=== PATIENT | female | born 1960 | race African-American/Black ===

== ENCOUNTER 2019-07-23 12:12 | Inpatient (IN) | payer BC, SELFPAY ==
[2019-07-23] VITALS (37 sets, daily range): BP systolic 117–156; BP diastolic 57–95; PULSE 96–129; RESP 14–29; TEMP 37.4–37.9; O2SAT 88–100; BMI 44.1
--- NOTE | ~2019-07-23 | XR_ITS ---
EXAMINATION: XR abdomen NG/feed tube insert DATE: 07/28/2019 22:45 INDICATION: Endotracheal tube insertion. Orogastric tube insertion. TECHNIQUE: 1. Frontal view of the chest was obtained. 2. AP view of the abdomen was obtained. COMPARISON: Chest radiograph dated 07/28/2019 FINDINGS: Chest: Endotracheal tube tip 2.4 cm above the braulio. Interval increase in bilateral patchy airspace opaciti es relatively sparing the left upper lung zone. No pleural effusion or pneumothorax. The cardiomedias tinal silhouette is normal. KUB: Orogastric tube tip in proximal side port in the body of the stomach. No dilated loops of gas-filled bowel to suggest obstruction. IMPRESSION: 1. Endotracheal tube and orogastric tube in expected positions. 2. Worsening diffuse bilateral lung disease consistent with pneumonia, pulmonary edema, ARDS or some combination thereof. Reviewed, dictated and finalized at location A. IMPRESSION: 1. Endotracheal tube and orogastric tube in expected positions. 2. Worsening diffuse bilateral lung disease consistent with pneumonia, pulmonar y edema, ARDS or some combination thereof.
--- NOTE | ~2019-07-23 | XR_ITS ---
EXAMINATION: XR chest 1V portable DATE: 07/27/2019 05:55 INDICATION: COVID-19 pneumonia. TECHNIQUE: A single frontal view of the chest was obtained. COMPARISON: Chest single view 07/26/2019 FINDINGS: There are patchy airspace opacities in all lung zones bilaterally. No pleural effusion or p neumothorax. The heart size is normal. IMPRESSION: 1. Stable diffuse lung disease, consistent with pneumonia versus acute respiratory distress syndrome (ARDS). Reviewed, dictated and finalized at location A. IMPRESSION: 1. Stable diffuse lung disease, consistent with pneumonia versus acute respirat ory distress syndrome (ARDS).
--- NOTE | ~2019-07-23 | XR_ITS ---
EXAMINATION: XR chest 1V portable INDICATION: COVID-19 pneumonia TECHNIQUE: Portable AP chest at 0517 hours COMPARISON: 07/27/2019 FINDINGS: Diffuse patchy bilateral airspace opacities persist without significant change. There is no pleural effusion or pneumothorax. The cardiomediastinal silhouette is normal. IMPRESSION: 1. Diffuse lung disease without significant change, consistent with pneumonia and/or acute respirator y distress syndrome (ARDS). Reviewed, dictated and finalized at location A. IMPRESSION: 1. Diffuse lung disease without significant change, consistent with pneumonia a nd/or acute respiratory distress syndrome (ARDS).
--- NOTE | ~2019-07-23 | XR_ITS ---
EXAMINATION: XR chest 1V portable DATE: 07/26/2019 05:58 INDICATION: COVID-19 pneumonia. TECHNIQUE: A single frontal view of the chest was obtained. COMPARISON: Chest single view 07/25/2019 FINDINGS: There are patchy airspace opacities in all lung zones bilaterally with a peripheral predomi nance. No pleural effusion or pneumothorax. The heart size is normal. IMPRESSION: 1. Unchanged diffuse lung disease, consistent with pneumonia versus acute respiratory distress syndro me (ARDS). Reviewed, dictated and finalized at location A. IMPRESSION: 1. Unchanged diffuse lung disease, consistent with pneumonia versus acute respi ratory distress syndrome (ARDS).
--- NOTE | ~2019-07-23 | XR_ITS ---
EXAMINATION: XR chest 1V portable DATE: 07/29/2019 06:02 INDICATION: Bilateral pulmonary infiltrates. COVID 19. TECHNIQUE: frontal view of the chest was obtained. COMPARISON: Chest radiograph dated 07/28/2019 FINDINGS: Endotracheal tube tip 1.8 cm above the braulio. Nasogastric tube extends below the left hemidiaphragm with distal tip collimated off the study. Slight improvement in the diffuse bilateral patchy airspace opacities. No pleural effusion or pneumot horax. The cardiomediastinal silhouette is normal. IMPRESSION: 1. Slight improvement in diffuse bilateral patchy opacities consistent with pneumonia, pulmonary zen a, ARDS or some combination thereof. Reviewed, dictated and finalized at location A. IMPRESSION: 1. Slight improvement in diffuse bilateral patchy opacities consistent with pne umonia, pulmonary edema, ARDS or some combination thereof.
--- NOTE | ~2019-07-23 | XR_ITS ---
EXAMINATION: XR chest 1V portable INDICATION: Hypoxia and shortness of breath TECHNIQUE: Portable AP chest at 1340 hours COMPARISON: None available FINDINGS: There are peripheral predominant opacities of the mid and lower lung zones. The heart size is upper limits of normal for technique. No pleural effusion or pneumothorax is identified. There is a moderate-sized hiatal hernia. IMPRESSION: 1. Airspace opacities of the mid and lower lung zones, consistent with pneumonia versus atelectasis. Reviewed, dictated and finalized at location A. IMPRESSION: 1. Airspace opacities of the mid and lower lung zones, consistent with pneumoni a versus atelectasis.
--- NOTE | ~2019-07-23 | XR_ITS ---
EXAMINATION: XR chest ET placement DATE: 07/28/2019 22:46 INDICATION: Endotracheal tube insertion. Orogastric tube insertion. TECHNIQUE: 1. Frontal view of the chest was obtained. 2. AP view of the abdomen was obtained. COMPARISON: Chest radiograph dated 07/28/2019 FINDINGS: Chest: Endotracheal tube tip 2.4 cm above the braulio. Interval increase in bilateral patchy airspace opaciti es relatively sparing the left upper lung zone. No pleural effusion or pneumothorax. The cardiomedias tinal silhouette is normal. KUB: Orogastric tube tip in proximal side port in the body of the stomach. No dilated loops of gas-filled bowel to suggest obstruction. IMPRESSION: 1. Endotracheal tube and orogastric tube in expected positions. 2. Worsening diffuse bilateral lung disease consistent with pneumonia, pulmonary edema, ARDS or some combination thereof. Reviewed, dictated and finalized at location A. IMPRESSION: 1. Endotracheal tube and orogastric tube in expected positions. 2. Worsening diffuse bilateral lung disease consistent with pneumonia, pulmonar y edema, ARDS or some combination thereof.
--- NOTE | ~2019-07-23 | XR_ITS ---
EXAMINATION: XR chest 1V portable EXAM DATE: 07/25/2019 17:19 INDICATION: COVID 19. TECHNIQUE: Portable AP frontal chest x-ray was obtained. Comparison is made to prior examination from 07/23/2019. FINDINGS: Again there is cardiomegaly. The distribution of the previously seen airspace disease is si milar, relatively widespread with peripheral predominance, but the density has increased, is more con fluent in consolidation. There is no pneumothorax suspected. There are no pleural effusions. There ar e mild bony degenerative changes. IMPRESSION: Extensive bilateral peripheral airspace disease, distribution unchanged but more consolid ated. Likely Acute lung Injury given history provided. Reviewed, dictated and finalized at location A. IMPRESSION: Extensive bilateral peripheral airspace disease, distribution uncha nged but more consolidated. Likely Acute lung Injury given history provided.
--- NOTE | 2019-07-23 13:05 | ECG_ITS ---
Measurements Intervals [place] Rate: 114 P: 68 AL: 155 QRS: -15 QRSD: 80 T: 49 QT: 338 QTc: 467 Interpretive Statements SINUS TACHYCARDIA POSSIBLE LEFT ATRIAL ENLARGEMENT POSSIBLE LEFT VENTRICULAR HYPERTROPHY BASELINE WANDER- I, II, AVR, AVL, V4 BORDERLINE ECG Electronically Signed On 07-23-2019 14:16:22 CDT by Marcos Keene D.O.
[2019-07-23 13:21] LABS: Basophils Percent Auto 0.2 % (0.2-1.2); Hematocrit 41.7 % (37.0-47.0); Hemoglobin 13.2 g/dL (12.0-15.0); Immature Granulocyte Absolute 0.02 K/mm3 (0.00-0.031); Immature Granulocyte Percent A 0.4 % (0-0.5); Lymphocytes Percent Auto 19.7 % (18.3-44.2); Mean Corpuscular HGB Conc 31.7 g/dl (32-36); Mean Corpuscular Hemoglobin 26.7 pg (26-34); Mean Corpuscular Volume 84.2 fl (80-100); Mean Platelet Volume 10.6 fl (7.4-10.4); Monocytes Absolute Auto 0.5 K/mm3 (0.1-0.6); Monocytes Percent Auto 9.8 % (2.6-8.5); Neutrophils Absolute Auto 3.6 K/mm3 (1.3-6.7); Neutrophils Percent Auto 69.9 % (45.5-73.1); Platelet Count Result 282 k/mm3 (150-375); Red Blood Count 4.95 M/mm3 (4.2-5.4); Red Cell Distribution Width 14.7 % (11.5-14.5); White Blood Count 5.1 K/mm3 (4.5-10.0)
[2019-07-23 13:33] LABS: Alanine Aminotransferase 39 U/L (4-35); Albumin Level 3.8 g/dL (3.5-5.1); Alkaline Phosphatase 91 U/L (38-126); Aspartate Amino Transferase 111 U/L (14-36); Bilirubin,Total 0.8 mg/dL (0.2-1.3); Blood Urea Nitrogen 13 mg/dL (7-17); Carbon Dioxide 28 mmol/L (22-30); Chloride 99 mmol/L (98-107); Estimated CRCL calculation 97 ml/min; Estimated Glomerular Filt Rate > 60; Glucose 106 mg/dL (65-105); Potassium 3.9 mmol/L (3.4-5.0); Sodium 137 mmol/L (137-145)
[2019-07-23] MEDS: ONDANSETRON INJ 4 MG/2 ML VIAL IV PUSH (14:29)
[2019-07-23] MEDS: SODIUM CHLORIDE 0.9% IV 500 ML 999 ML IV CONT (14:29)
[2019-07-23 15:23] LABS: Lactic Acid Reflex 0.7 mmol/L (0.7-2.1)
--- NOTE | 2019-07-23 15:38 | PC.NURSE ---
Pt aware of POC. Pt has no questions at this time
[2019-07-23 16:12] LABS: CRP 8.5 mg/dL (<1.0); Lactate Dehydrogenase 1188 U/L (313-618); Lipase 112 U/L (23-300)
[2019-07-23 16:46] LABS: Alveolar/Arterial O2 Gradient 80.6 mmHg; Carboxyhemoglobin 0.1 % THb (0-2.0); Fractional Inspired Oxygen 28 %; HCO3 ABG 27.1 mEq/l (22.0-26.0); Methemoglobin ABG 0.3 %THb (0-1.5); Oxygen Content ABG 16.6 %vol (16.0-22.0); Oxygen Saturation ABG 93.3 % (95.0-100.0); Oxyhemoglobin 91.3 % THb (90.0-100.0); PCO2 ABG 44.3 mmHg (35.0-45.0); PO2 ABG 66.8 mmHg (80.0-100.0); PO2 FiO2 Ratio Arterial Blood 2.39 %; Reduced Hemoglobin 8.3 %THb (0-5.0); Total Hemoglobin 12.9 g/dL (12.0-18.0); pH ABG 7.405 (7.350-7.450)
[2019-07-23 16:47] LABS: Device NASAL CANNULA; Site Drawn LEFT BRACHIAL
--- NOTE | 2019-07-23 16:55 | ED.WEAKNESS ---
HPI - Weakness General Chief complaint: Dizziness <RAHUL Weber Last Filed: 07/23/19 17:16> Stated complaint: . <RAHUL Weber Last Filed: 07/23/19 17:16> Time Seen by Provider: 07/23/19 13:52 <RAHUL Weber Last Filed: 07/23/19 17:16> Source: patient <RAHUL Weber Last Filed: 07/23/19 17:16> Mode of arrival: wheelchair <RAHUL Weber Last Filed: 07/23/19 17:16> Limitations: no limitations <RAHUL Weber Last Filed: 07/23/19 17:16> History of Present Illness HPI Narrative: This is a 59 year old female that presents to the ER for weakness x 4 days. Reports lethargy and decreased appetite. Also reports cold symptoms. Reports cough, congestion and fever. Denies chest pain or shortness of breath. <RAHUL Weber Last Filed: 07/23/19 17:16> Related Data Home medications: Home Medications Medication Instructions Recorded Confirmed amlodipine 10 mg PO HS 07/23/19 07/23/19 atorvastatin 40 mg PO DAILY 07/23/19 07/23/19 carvedilol 25 mg PO HS 07/23/19 07/23/19 glimepiride 1 mg PO HS 07/23/19 07/23/19 <RAHUL Weber Last Filed: 07/23/19 17:16> Allergies/Adverse reactions: Allergies Allergy/AdvReac Type Severity Reaction Status Date / Time No Known Allergies Allergy Verified 07/23/19 12:22 <RAHUL Weber Last Filed: 07/23/19 17:16> Review of Systems Review of Systems: Narrative: CONSTITUTIONAL: Reports fever ENT: Reports rhinorrhea, congestion. Denies sore throat, or otalgia. CARDIOVASCULAR: Denies chest pain RESPIRATORY: Reports cough. Denies dyspnea. NEUROLOGIC: Reports weakness. <RAHUL Weber Last Filed: 07/23/19 17:16> All systems reviewed & are unremarkable except as noted in HPI and below <Erin Carter PA-C - Last Filed: 07/23/19 17:16> [facility] Past Medical History Medical History: Medical History (Updated 07/23/19 @ 17:17 by Erin Carter PA-C) History of diabetes mellitus History of hypertension <Erin Carter PA-C - Last Filed: 07/23/19 17:16> Social History Social History: Social History Smoking packs per day: 4 Smoking cigarettes per day: 80.0 Years smoked: 29 Smoking pack-years: 116.00 Smoking status: Former smoker Tobacco type: cigarettes Second hand tobacco smoke exposure: Yes Smoking end date: 03/14/04 Alcohol intake: never Substance use: never Gender identity (if verbalized by the patient): Female Spiritual care concerns: No <Erin Carter PA-C - Last Filed: 07/23/19 17:16> Exam Narrative: Exam Narrative: GENERAL: Well-appearing, obese, and in no acute distress. HEAD: Normocephalic, atraumatic. EYES: EOMI. ENT: Nares clear, no rhinorrhea or epistaxis. Mucous membranes moist. Oropharynx without tonsillar hypertrophy exudate or other lesions. Bilateral TMs pearly ham non-bulging NECK: Supple. No adenopathy or masses. CHEST: Clear to auscultation. No respiratory distress. No wheezes rales or rhonchi HEART: Regular rate and rhythm. No murmur heard. Normal peripheral pulses. EXTREMITIES: Normal range of motion. No edema. SKIN: Warm, dry, no rash. NEURO: No focal deficits. Alert and oriented x3. PSYCH: Normal mood and affect <Erin Carter PA-C - Last Filed: 07/23/19 17:16> Course DIRECTOR OF MUSIC THERAPY/PA Physician Supervision Attestation for Erin Carter at 1708. Discussed the case with Erin and the patient will be admitted for pneumonia and hypoxia. Suggestive of COVID. [id number] with the patient, she tells me that her sister is already admitted here for COVID. She does not feel like her oxygen is low, she said she just thought her antibiotics were not working. She is in no distress, uncomfortable. She understands she is being admitted just until her oxygen comes back to normal.Jyoti Lomeli <Jyoti Lomeli MD - Last Filed: 07/23/19 19:49> Vital Signs Vital signs: Vital Signs
[2019-07-23 17:13] LABS: Add Urine Microscopic? YES; Appearance Urine Cloudy (Clear); Bacteria Urine 1+ /hpf; Bilirubin Urine Negative (Negative); Blood Urine 1+ (Negative); Color Urine Yellow (Yellow); Glucose Urine UA Negative (Negative); Ketones Urine Trace mg/dL (Negative); Leukocyte Esterase Ur 3+ LEU/UL (Negative); Nitrate Urine Negative (Negative); Protein Urine 1+ mg/dL (Negative); Specific Grav Ur 1.021 (1.001-1.035); Squamous Epithelial Cell Urine Few /hpf (Few); WBC Urine >75 /hpf
--- NOTE | 2019-07-23 18:53 | ADMGEN ---
This patient, Alina Charles, was admitted to [facility] Room 329-01 on 07/23/2019 @ 7555. Patient/family oriented to hospital policies and general routines including ID bracelet, bed and alarms, visiting hours, pain management, procedures, bathroom and other care routines, personal items, smoking policy, room service/diet, and visiting hours. Valuables list has been completed. Information on how to activate the Rapid Response Team has been discussed. Patient/Family are encouraged to report perceived risks to care and to ask questions if they do not understand what they are told or what they should do.
--- NOTE | 2019-07-23 19:34 | ADMGEN ---
This patient, Alina Charles, was admitted to [facility] Room 329-01. Patient/family oriented to hospital policies and general routines including ID bracelet, bed and alarms, visiting hours, pain management, procedures, bathroom and other care routines, personal items, smoking policy, room service/diet, and visiting hours. Valuables list has been completed. Information on how to activate the Rapid Response Team has been discussed. Patient/Family are encouraged to report perceived risks to care and to ask questions if they do not understand what they are told or what they should do.
[2019-07-24] VITALS (16 sets, daily range): BP systolic 123–176; BP diastolic 60–71; PULSE 90–110; RESP 20–22; TEMP 35.9–37.9; O2SAT 90–98
[2019-07-24] MEDS: ENOXAPARIN 40 MG/0.4 ML SYRINGE SUB-Q (11:14)
--- NOTE | 2019-07-24 12:31 | PM.IMHP ---
H&P: HPI History of Present Illness Chief complaint: Pneumonia with hypoxia Narrative: Alina Charles is a 59 year old female with a past medical history of diabetes and hypertension who presented emergency room due to weakness and dizziness. The patient states about 4 days ago she started feeling very weak and tired. She was not sore or had any chills but had a fever of 103 max. She denies cough, shortness of breath, chest pain, vomiting, constipation, diarrhea, dysuria, frequency, loss of smell or loss of taste. She has had some nausea with some dry heaving. She says she is not around anyone who is sick at this time. She has taken all the precautions that she knows of such as wearing a mask in public, wearing gloves, and using hand certified orthotic fitter and wipes. She only went out to go to the grocery store. She lives at home with her daughter who works at [employer] but in an office and her daughter has not had any symptoms. She says since being hospitalized her dizziness has resolved. She still feels weak but overall much better than she did yesterday. She is eating and drinking okay with some mild nausea. Review of Systems Review of Systems: All systems reviewed & are unremarkable except as noted in HPI and below PMFSH Past Medical History Medical History (Updated 07/24/19 @ 12:37 by Argenis Otto PA-C) History of diabetes mellitus History of hypertension HLD (hyperlipidemia) Surgical History Surgical History (Updated 07/24/19 @ 12:35 by Argenis Otto PA-C) History of cholecystectomy History of left knee replacement Family History Family History Mother Diabetes mellitus Cerebrovascular accident Hypertension Cancer of lung Father Unknown family medical history Social History Social History (Updated 07/24/19 @ 12:35 by Argenis Otto PA-C) Social History: 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 She does not drink, smoke, or do drugs. She is a former smoker but smoked occasionally and quit about 20 years ago. She would like to be a full code Smoking packs per day: 4 Smoking cigarettes per day: 80.0 Years smoked: 29 Smoking pack-years: 116.00 Smoking status: Former smoker Tobacco type: cigarettes Second hand tobacco smoke exposure: Yes Smoking end date: 03/14/04 Alcohol intake: never Substance use: never Gender identity (if verbalized by the patient): Female Spiritual care concerns: No Meds Home Medications and Allergies Home Medications Medication Instructions Recorded Confirmed Type amlodipine 10 mg PO HS 07/23/19 07/23/19 History atorvastatin 40 mg PO DAILY 07/23/19 07/23/19 History carvedilol 25 mg PO HS 07/23/19 07/23/19 History glimepiride 1 mg PO HS 07/23/19 07/23/19 History Allergies Allergy/AdvReac Type Severity Reaction Status Date / Time No Known Allergies Allergy Verified 07/23/19 12:22 Vital Signs Vital Signs - 24 hr 07/23/19 12:34 07/23/19 12:45 07/23/19 13:00 Temperature Pulse Rate 119 H 114 H 113 H Respiratory Rate 23 H 18 14 Blood Pressure Pulse Oximetry 88 L 98 97 07/23/19 13:15 07/23/19 13:40 07/23/19 13:45 Temperature Pulse Rate 112 H 119 H 110 H Respiratory Rate 21 H 20 21 H Blood Pressure Pulse Oximetry 95 91 96 07/23/19 13:48 07/23/19 14:00 07/23/19 14:01 Temperature Pulse Rate 110 H 111 H 110 H Respiratory Rate 17 18 15 Blood Pressure 140/82 156/95 H Pulse Oximetry 89 L 92 99 07/23/19 14:15 07/23/19 14:16 07/23/19 14:30 Temperature Pulse Rate 110 H 108 H 106 H Respiratory Rate 19 17 24 H Blood Pressure 148/88 H 135/78 Pulse Oximetry 90 95 95 07/23/19 14:31 07/23/19 14:45 07/23/19 14:46 Temperature Pulse Rate 104 H 105 H 105 H Respiratory Rate 21 H 21 H 25 H Blood Pressure 139/75 Pulse Oximetry 98 90 97 07/23/19 15:00 07/23/19 15:04 07/23/19 15:15 Temperature Pulse Rate 102
[2019-07-24 14:50] LABS: SARS-CoV-2 RNA PCR Positive
--- NOTE | 2019-07-24 14:50 | PC.NURSE ---
Notified Argenis PIERRE that patient is COVID positive. No new orders were obtained.
[2019-07-24 15:12] LABS: Glucose Point of Care 85 (65-105)
[2019-07-24] MEDS: ALBUTEROL SULFATE (*SP) AEROSOL 1 PUFF 2 PUFF INHALATION (17:05)
[2019-07-24] MEDS: AMLODIPINE BESYLATE 5 MG TABLET 10 MG PO (20:08)
[2019-07-24] MEDS: carvediloL 25 MG TABLET PO (20:09)
[2019-07-24 20:33] LABS: Glucose Point of Care 82 (65-105)
--- NOTE | 2019-07-24 22:52 | PC.NURSE ---
Called to room by patient pediatric critical care nurse to find patient lowered to the ground after passing out. Pt was unresponsive to stimuli. Rapid response called.
[2019-07-25] VITALS (21 sets, daily range): BP systolic 107–148; BP diastolic 51–73; PULSE 81–101; RESP 20–30; TEMP 36.6–38.2; O2SAT 88–97
--- NOTE | 2019-07-25 00:03 | P.PNCROSS_ITS ---
Event Note Event Note Event Note: A rapid response was called and I saw the patient lying on the floor. The nurse's aide was walking the patient back from the bathroom when the patient stated she was feeling dizzy. This nurse's aide stated that he Eased her to the ground. She did not hit her head. The patient had regular respirations that were unlabored. The patient was verbally unresponsive. Initially her oxygen level was in the 60s and 70s. Her oxygen tubing was found to be underneath of her but still on her face. We switched her to a non- rebreather 15 L per nasal cannula and the patient's woke up and was wondering why people were standing around her. Her oxygen level went up to 100%.. No ABGs were drawn at this time as the patient was awake and talking and doing better with a 15 L non-rebreather. I spoke to my collaborative to make him aware of the situation. Will keep the patient on 3rd floor for now. I informed her that her COVID testing was positive
[2019-07-25 04:32] LABS: Glucose Point of Care 82 (65-105)
[2019-07-25 06:06] LABS: Hematocrit 36.7 % (37.0-47.0); Hemoglobin 11.7 g/dL (12.0-15.0); Mean Corpuscular HGB Conc 31.9 g/dl (32-36); Mean Corpuscular Hemoglobin 26.5 pg (26-34); Mean Platelet Volume 9.9 fl (7.4-10.4); Platelet Count Result 385 k/mm3 (150-375); Red Blood Count 4.42 M/mm3 (4.2-5.4); Red Cell Distribution Width 14.8 % (11.5-14.5); White Blood Count 6.7 K/mm3 (4.5-10.0)
[2019-07-25 06:24] LABS: Blood Urea Nitrogen 17 mg/dL (7-17); Calcium 7.8 mg/dL (8.4-10.2); Carbon Dioxide 30 mmol/L (22-30); Chloride 98 mmol/L (98-107); Estimated CRCL calculation 77 ml/min; Estimated Glomerular Filt Rate > 60; Glucose 100 mg/dL (65-105); Potassium 4.2 mmol/L (3.4-5.0); Sodium 134 mmol/L (137-145)
[2019-07-25] MEDS: ALBUTEROL SULFATE (*SP) AEROSOL 1 PUFF 2 PUFF INHALATION ×4 (08:55→20:31)
[2019-07-25] MEDS: ENOXAPARIN 40 MG/0.4 ML SYRINGE SUB-Q (09:01)
[2019-07-25 09:30] LABS: Glucose Point of Care 92 (65-105)
[2019-07-25 13:13] LABS: Glucose Point of Care 85 (65-105)
[2019-07-25] MEDS: ACETAMINOPHEN 325 MG TABLET 650 MG PO ×2 (14:58→23:48)
--- NOTE | 2019-07-25 16:16 | PM.IMPN ---
Progress Note: A&P Assessment and Plan (1) COVID-19: Code(s): U07.1 - COVID-19 Status: Acute Assessment and Plan: -----patient has confirmed COVID-19. Although she claims to be feeling much better, her condition has worsened. She is now on 15 L non-rebreather. She does not feel short of breath. She continues to have fever but does not have any complaints with that either. I talked to the nurse who says she becomes hypoxic when getting to the bedside commode and even felt dizzy and fell last night overnight because of this. At this time, we will continue oxygen supplementation and supportive care. If she worsens, she will need to be sent to be in the ICU but as of now she is stable. We will recheck COVID labs and chest x-ray in the morning. (2) Urinary tract infection: Qualifiers: Hematuria presence: without hematuria Urinary tract infection type: acute cystitis Qualified Code(s): N30.00 - Acute cystitis without hematuria Code(s): N39.0 - Urinary tract infection, site not specified Status: Acute Assessment and Plan: -----urine culture confirms E coli UTI. Continue ceftriaxone (3) Pneumonia: Qualifiers: Laterality: bilateral Lung location: unspecified part of lung Pneumonia type: due to unspecified organism Qualified Code(s): J18.9 - Pneumonia, unspecified organism Code(s): J18.9 - Pneumonia, unspecified organism Status: Acute Assessment and Plan: ----- viral, continue supportive measures as stated above (4) Acute respiratory failure with hypoxia: Code(s): J96.01 - Acute respiratory failure with hypoxia Status: Acute Assessment and Plan: -----continue 15 L non-rebreather for sats greater than 90. Although she has clinically worsened, the patient states she feels much better. Will continue to monitor closely on continuous pulse oximetry. Notified my supervising physician as she could potentially need the ICU if she worsens. For now, she is clinically stable. Monitor closely (5) T2DM (type 2 diabetes mellitus): Code(s): E11.9 - Type 2 diabetes mellitus without complications Status: Acute Assessment and Plan: -----last glucose 85. Continue a.c. HS Accu-Cheks and sliding scale insulin. (6) HTN (hypertension), benign: Code(s): I10 - Essential (primary) hypertension Status: Acute Assessment and Plan: -----last blood pressure 131/57. Continue amlodipine and carvedilol Time Spent With Patient Time with patient: 25 - 35 minutes Subjective Date/time seen: 07/25/19 16:16 Interval history: Pt is a 59-year-old female here for COVID-19. Patient was seen today and states she feels much better than when she was admitted. She is currently on 15 L non-rebreather and says she has no shortness of breath. She says when she gets up she feels dizzy and short of breath. She has no pain from her fall overnight. She said she is eating and drinking well. She says her weakness has improved as well. No chest pain, nausea, vomiting, diarrhea or constipation today. Review of Systems Review of Systems: All systems reviewed & are unremarkable except as noted in HPI and below Exam Narrative: Exam Narrative: General:Well developed well nourished patient resting comfortably in bed in no acute distress with non-rebreather HEENT: Normocephalic, atraumatic, PERRL, Sclerae anicteric, oral mucosa moist. Neck: Supple Resp: CTA, 15LNRB. Patient able to speak in full sentences without conversational dyspnea. No retractions Heart: RRR with no murmurs. Telemetry shows occasional hypoxia 79-89 Abd: Soft, nontender. No pain to palpation. Positive bowel sounds Skin: Warm and dry Extremities: No swelling, erythema or pain to palpation Neuro: Alert and Oriented x4 . CN 2-12 intact. No focal neurological deficits. Objective Data Vital Signs Vital Signs: Vital Signs - 24 hr
[2019-07-25 17:16] LABS: Glucose Point of Care 99 (65-105)
--- NOTE | 2019-07-25 18:15 | PC.NURSE ---
This patient, Alina Charles, was transferred to [ ICU 3] on 07/25/19 at 1816. Personal belongings sent with patient. Report given to [ kraig]. Appropriate documentation sent with patient.
--- NOTE | 2019-07-25 18:25 | PC.NURSE ---
This patient, Alina Charles, was received from [[id number] ] on 07/25/19 at 1810. Personal belongings list checked and signed. Patient/family oriented to unit policies and routines
[2019-07-25] MEDS: AMLODIPINE BESYLATE 5 MG TABLET 10 MG PO (19:38)
[2019-07-25] MEDS: carvediloL 25 MG TABLET PO (19:38)
[2019-07-25 20:33] LABS: Glucose Point of Care 100 (65-105)
[2019-07-26] VITALS (18 sets, daily range): BP systolic 118–163; BP diastolic 55–96; PULSE 82–109; RESP 20–34; TEMP 37–38.2; O2SAT 87–98
[2019-07-26 05:02] LABS: Hematocrit 36.6 % (37.0-47.0); Hemoglobin 11.6 g/dL (12.0-15.0); Mean Corpuscular HGB Conc 31.7 g/dl (32-36); Mean Corpuscular Hemoglobin 26.7 pg (26-34); Mean Corpuscular Volume 84.3 fl (80-100); Mean Platelet Volume 9.9 fl (7.4-10.4); Platelet Count Result 456 k/mm3 (150-375); Red Blood Count 4.34 M/mm3 (4.2-5.4); Red Cell Distribution Width 14.7 % (11.5-14.5); White Blood Count 7.2 K/mm3 (4.5-10.0)
[2019-07-26 05:23] LABS: Blood Urea Nitrogen 19 mg/dL (7-17); Calcium 7.9 mg/dL (8.4-10.2); Carbon Dioxide 32 mmol/L (22-30); Chloride 97 mmol/L (98-107); Estimated CRCL calculation 85 ml/min; Estimated Glomerular Filt Rate > 60; Glucose 99 mg/dL (65-105); Lactate Dehydrogenase 1287 U/L (313-618); Potassium 4.4 mmol/L (3.4-5.0); Sodium 135 mmol/L (137-145)
[2019-07-26 05:35] LABS: CRP 24.9 mg/dL (<1.0)
[2019-07-26] MEDS: ALBUTEROL SULFATE (*SP) AEROSOL 1 PUFF 2 PUFF INHALATION ×6 (08:09→19:09)
[2019-07-26] MEDS: ENOXAPARIN 80 MG/0.8 ML SYRINGE 131 MG SUB-Q ×2 (12:52→20:00)
[2019-07-26 13:11] LABS: Glucose Point of Care 87 (65-105)
[2019-07-26 13:11] LABS: Glucose Point of Care 82 (65-105)
--- NOTE | 2019-07-26 13:39 | WPDCNINT ---
Assessment and Plan Assessment and plan (1) Acute respiratory failure with hypoxia: Code(s): J96.01 - Acute respiratory failure with hypoxia Status: Acute Assessment and Plan: patient presented with bilateral infiltrates which have worsened on the chest x-ray since admission. Patient tested positive for COVID-19 - started patient on azithromycin, patient already on ceftriaxone - patient currently requiring 90% FiO2 with 60 L flow rate on high-flow nasal cannula therapy - patient also on non-rebreather mask, with all this patient is saturating between 89-92% - continue to monitor will get ABGs to evaluate her oxygenation (2) COVID-19: Code(s): U07.1 - COVID-19 Status: Acute Assessment and Plan: SARS-CoV-2 PCR is positive on 07/23/2019 - continue droplet, airborne, contact isolation - will obtain and follow inflammatory markers intermittently (3) T2DM (type 2 diabetes mellitus): Code(s): E11.9 - Type 2 diabetes mellitus without complications Status: Acute Assessment and Plan: blood sugars have been stable, continue sliding scale insulin Accu-Cheks (4) HTN (hypertension), benign: Code(s): I10 - Essential (primary) hypertension Status: Acute Assessment and Plan: patient with history of essential hypertension, continue amlodipine, carvedilol (5) Urinary tract infection: Qualifiers: Hematuria presence: without hematuria Urinary tract infection type: acute cystitis Qualified Code(s): N30.00 - Acute cystitis without hematuria Code(s): N39.0 - Urinary tract infection, site not specified Status: Acute Assessment and Plan: patient growing E coli in the urine cultures, garcia sensitive - continue ceftriaxone (6) Pneumonia: Qualifiers: Laterality: bilateral Lung location: unspecified part of lung Pneumonia type: due to unspecified organism Qualified Code(s): J18.9 - Pneumonia, unspecified organism Code(s): J18.9 - Pneumonia, unspecified organism Status: Acute Assessment and Plan: antibiotics as above (7) DVT prophylaxis: Code(s): Z29.9 - Encounter for prophylactic measures, unspecified Status: Acute Assessment and Plan: patient has been placed on therapeutic Lovenox Additional Plan discussed with patient at length and updated her with her condition and plan of care. I let her know that she is on significant amount of oxygen with her O2 sats being borderline. Patient is asymptomatic at this time but if situation worsens and oxygenation declines she was agreeable for intubation and mechanical ventilation. I also discussed with her regarding CPR if her heart stops, she requested to be a full code and do CPR code status: Full code Critical care time spent: 43 minutes Due to a high probability of clinically significant, life threatening deterioration, the patient required my highest level of preparedness to intervene emergently and I personally spent this critical care time directly and personally managing the patient. This critical care time included obtaining a history; examining the patient; pulse oximetry; ordering and review of studies; arranging urgent treatment with development of a management plan; evaluation of patient's response to treatment; frequent reassessment; and discussions with other providers. It was exclusive of separately billable procedures and treating other patients and teaching time. Please see Assessment and Plan section and the rest of the note for further information on patient assessment and treatment Director Of [employer] Consult Note Consult date: 07/26/19 Time Seen: 13:22 Reason for consult: acute respiratory failure with hypoxia, POSITIVE COVID-19, pneumonia HPI: Alina Charles is a 59 year old female past medical history of diabetes type 2, essential hypertension, hyperlipidemia presented the ED on 07/23/2019 with complains of generalized wea
--- NOTE | 2019-07-26 18:05 | PM.IMPN ---
Progress Note: A&P Assessment and Plan (1) COVID-19: Code(s): U07.1 - COVID-19 Status: Acute Assessment and Plan: -----patient has confirmed COVID-19. Although she claims to be feeling much better, her condition has worsened. She is now on 15 L non-rebreather. She does not feel short of breath. She continues to have fever but does not have any complaints with that either. I talked to the nurse who says she becomes hypoxic when getting to the bedside commode and even felt dizzy and fell last night overnight because of this. At this time, we will continue oxygen supplementation and supportive care. If she worsens, she will need to be sent to be in the ICU but as of now she is stable. We will recheck COVID labs and chest x-ray in the morning. 07/26/2019 Patient is a 59-year-old female with COVID-19 patient had been requiring higher amount of oxygen and was transferred to ICU from medical floor, spoke with the patient however patient is requiring high amount of oxygen but denies any cough shortness of breath denies any fever or chills, discussed with leather carver, spoke with the patient the possibility of ventilation and patient has agreed will continue to monitor appreciate leather carver (2) Urinary tract infection: Qualifiers: Hematuria presence: without hematuria Urinary tract infection type: acute cystitis Qualified Code(s): N30.00 - Acute cystitis without hematuria Code(s): N39.0 - Urinary tract infection, site not specified Status: Acute Assessment and Plan: -----urine culture confirms E coli UTI. Continue ceftriaxone (3) Pneumonia: Qualifiers: Laterality: bilateral Lung location: unspecified part of lung Pneumonia type: due to unspecified organism Qualified Code(s): J18.9 - Pneumonia, unspecified organism Code(s): J18.9 - Pneumonia, unspecified organism Status: Acute Assessment and Plan: ----- viral, continue supportive measures as stated above (4) Acute respiratory failure with hypoxia: Code(s): J96.01 - Acute respiratory failure with hypoxia Status: Acute Assessment and Plan: -----continue 15 L non-rebreather for sats greater than 90. Although she has clinically worsened, the patient states she feels much better. Will continue to monitor closely on continuous pulse oximetry. Notified my supervising physician as she could potentially need the ICU if she worsens. For now, she is clinically stable. Monitor closely patient is agreeable for ventilation if needed (5) T2DM (type 2 diabetes mellitus): Code(s): E11.9 - Type 2 diabetes mellitus without complications Status: Acute Assessment and Plan: -----last glucose 85. Continue a.c. HS Accu-Cheks and sliding scale insulin. (6) HTN (hypertension), benign: Code(s): I10 - Essential (primary) hypertension Status: Acute Assessment and Plan: -----last blood pressure 131/57. Continue amlodipine and carvedilol Subjective Date/time seen: 07/26/19 18:05 Interval history: Pt is a 59-year-old female here for COVID-19. Patient was seen today and states she feels much better than when she was admitted. She is currently on 15 L non-rebreather and says she has no shortness of breath. She says when she gets up she feels dizzy and short of breath. She has no pain from her fall overnight. She said she is eating and drinking well. She says her weakness has improved as well. No chest pain, nausea, vomiting, diarrhea or constipation today. Patient is a 59-year-old female with COVID-19 patient had been requiring higher amount of oxygen and was transferred to ICU from medical floor, spoke with the patient however patient is requiring high amount of oxygen but denies any cough shortness of breath denies any fever or chills, discussed with leather carver, spoke with the patient the possibility of ventilation and patient has agreed higinio
[2019-07-26] MEDS: AMLODIPINE BESYLATE 5 MG TABLET 10 MG PO (19:54)
[2019-07-26] MEDS: carvediloL 25 MG TABLET PO (20:00)
[2019-07-26 21:07] LABS: Glucose Point of Care 113 (65-105)
[2019-07-26 21:07] LABS: Glucose Point of Care 80 (65-105)
[2019-07-27] VITALS (17 sets, daily range): BP systolic 119–159; BP diastolic 49–84; PULSE 87–112; RESP 18–38; TEMP 37.1–37.7; O2SAT 93–100
[2019-07-27 05:35] LABS: D Dimer 0.58 ug/mL (<0.48)
[2019-07-27 06:18] LABS: Alveolar/Arterial O2 Gradient 614.1 mmHg; Base Excess ABG 4.6 mEq/l (+/-2.0); Carboxyhemoglobin 0.3 % THb (0-2.0); Fractional Inspired Oxygen 100 %; HCO3 ABG 29.6 mEq/l (22.0-26.0); Methemoglobin ABG 0.4 %THb (0-1.5); Oxygen Saturation ABG 88.2 % (95.0-100.0); Oxyhemoglobin 85.2 % THb (90.0-100.0); PCO2 ABG 45.8 mmHg (35.0-45.0); PO2 ABG 53.1 mmHg (80.0-100.0); PO2 FiO2 Ratio Arterial Blood 0.53 %; Reduced Hemoglobin 14.1 %THb (0-5.0); Total Hemoglobin 12.5 g/dL (12.0-18.0); pH ABG 7.429 (7.350-7.450)
[2019-07-27 06:19] LABS: Device HIGH FLOW THERAPY; Modified Allen's Test Pass; Site Drawn RIGHT RADIAL
[2019-07-27 07:13] LABS: Alanine Aminotransferase 21 U/L (4-35); Albumin Level 3.3 g/dL (3.5-5.1); Alkaline Phosphatase 74 U/L (38-126); Aspartate Amino Transferase 62 U/L (14-36); Bilirubin,Total 0.6 mg/dL (0.2-1.3); Blood Urea Nitrogen 18 mg/dL (7-17); CRP 30.8 mg/dL (<1.0); Calcium 7.9 mg/dL (8.4-10.2); Carbon Dioxide 32 mmol/L (22-30); Chloride 97 mmol/L (98-107); Estimated CRCL calculation 95 ml/min; Estimated Glomerular Filt Rate > 60; Glucose 100 mg/dL (65-105); Lactate Dehydrogenase 1251 U/L (313-618); Magnesium 2.3 mg/dL (1.6-2.3); Phosphorus 3.4 mg/dL (2.5-4.5); Potassium 4.2 mmol/L (3.4-5.0); Sodium 134 mmol/L (137-145)
[2019-07-27] MEDS: ALBUTEROL SULFATE (*SP) AEROSOL 1 PUFF 2 PUFF INHALATION ×4 (08:35→20:44)
[2019-07-27] MEDS: ENOXAPARIN 80 MG/0.8 ML SYRINGE 131 MG SUB-Q ×2 (08:48→20:15)
[2019-07-27 09:00] LABS: Glucose Point of Care 89 (65-105)
[2019-07-27 10:00] LABS: Basophils Percent Auto 0.1 % (0.2-1.2); Eosinophils Percent Auto 0.2 % (0-4.4); Hematocrit 35.8 % (37.0-47.0); Hemoglobin 11.3 g/dL (12.0-15.0); Immature Granulocyte Absolute 0.11 K/mm3 (0.00-0.031); Immature Granulocyte Percent A 1.2 % (0-0.5); Lymphocytes Absolute Auto 1.48 K/mm3 (0.9-3.2); Lymphocytes Percent Auto 16.4 % (18.3-44.2); Mean Corpuscular HGB Conc 31.6 g/dl (32-36); Mean Corpuscular Hemoglobin 26.4 pg (26-34); Mean Corpuscular Volume 83.6 fl (80-100); Mean Platelet Volume 9.6 fl (7.4-10.4); Monocytes Absolute Auto 0.6 K/mm3 (0.1-0.6); Neutrophils Absolute Auto 6.8 K/mm3 (1.3-6.7); Neutrophils Percent Auto 75.1 % (45.5-73.1); Platelet Count Result 573 k/mm3 (150-375); Red Blood Count 4.28 M/mm3 (4.2-5.4); Red Cell Distribution Width 14.7 % (11.5-14.5)
[2019-07-27 11:17] LABS: Rouleaux 1+ (NORMAL)
--- NOTE | 2019-07-27 11:25 | WPDINTPN ---
Progress Note: A&P Assessment and Plan (1) Acute respiratory failure with hypoxia: Code(s): J96.01 - Acute respiratory failure with hypoxia Status: Acute Assessment and Plan: patient presented with bilateral infiltrates which have worsened on the chest x-ray since admission. Patient tested positive for COVID-19 - started patient on azithromycin, patient already on ceftriaxone - patient currently requiring 90% FiO2 with 60 L flow rate on high-flow nasal cannula therapy - patient also on non-rebreather mask, with all this patient is saturating between 89-92% - continue to monitor will get ABGs to evaluate her oxygenation (2) COVID-19: Code(s): U07.1 - COVID-19 Status: Acute Assessment and Plan: SARS-CoV-2 PCR is positive on 07/23/2019 - continue droplet, airborne, contact isolation - will obtain and follow inflammatory markers intermittently (3) T2DM (type 2 diabetes mellitus): Code(s): E11.9 - Type 2 diabetes mellitus without complications Status: Acute Assessment and Plan: blood sugars have been stable, continue sliding scale insulin Accu-Cheks (4) HTN (hypertension), benign: Code(s): I10 - Essential (primary) hypertension Status: Acute Assessment and Plan: patient with history of essential hypertension, continue amlodipine, carvedilol (5) Urinary tract infection: Qualifiers: Hematuria presence: without hematuria Urinary tract infection type: acute cystitis Qualified Code(s): N30.00 - Acute cystitis without hematuria Code(s): N39.0 - Urinary tract infection, site not specified Status: Acute Assessment and Plan: patient growing E coli in the urine cultures, garcia sensitive - continue ceftriaxone (6) Pneumonia: Qualifiers: Laterality: bilateral Lung location: unspecified part of lung Pneumonia type: due to unspecified organism Qualified Code(s): J18.9 - Pneumonia, unspecified organism Code(s): J18.9 - Pneumonia, unspecified organism Status: Acute Assessment and Plan: antibiotics as above (7) DVT prophylaxis: Code(s): Z29.9 - Encounter for prophylactic measures, unspecified Status: Acute Assessment and Plan: patient has been placed on therapeutic Lovenox Additional Plan discussed with patient at length and updated her with her condition and plan of care. I let her know that she is on significant amount of oxygen with her O2 sats being borderline. Patient is asymptomatic at this time but if situation worsens and oxygenation declines she was agreeable for intubation and mechanical ventilation. I also discussed with her regarding CPR if her heart stops, she requested to be a full code and do CPR code status: Full code Critical care time spent: 43 minutes Due to a high probability of clinically significant, life threatening deterioration, the patient required my highest level of preparedness to intervene emergently and I personally spent this critical care time directly and personally managing the patient. This critical care time included obtaining a history; examining the patient; pulse oximetry; ordering and review of studies; arranging urgent treatment with development of a management plan; evaluation of patient's response to treatment; frequent reassessment; and discussions with other providers. It was exclusive of separately billable procedures and treating other patients and teaching time. Please see Assessment and Plan section and the rest of the note for further information on patient assessment and treatment Subjective Date/time seen: 07/27/19 11:25 Interval history: Reason for consult: acute respiratory failure with hypoxia, POSITIVE COVID-19, pneumonia 07/27/2019: Exam Const: General: comfortable and no acute distress Other: sitting in the chair comfortably HENMT: Mouth: Yes moist mucous membranes Eyes: Sclera: sclerae normal a
--- NOTE | 2019-07-27 11:44 | WPDINTPN ---
Progress Note: A&P Assessment and Plan (1) Acute respiratory failure with hypoxia: Code(s): J96.01 - Acute respiratory failure with hypoxia Status: Acute Assessment and Plan: patient presented with bilateral infiltrates which have worsened on the chest x-ray since admission. Patient tested positive for COVID-19 - continue azithromycin and ceftriaxone - patient currently requiring 90% FiO2 with 50 L flow rate on high-flow nasal cannula therapy - patient also on non-rebreather mask, with all this patient is saturating between 95-99% - continue to monitor will get ABGs to evaluate her oxygenation (2) COVID-19: Code(s): U07.1 - COVID-19 Status: Acute Assessment and Plan: SARS-CoV-2 PCR is positive on 07/23/2019 - continue droplet, airborne, contact isolation - inflammatory markers are elevated, will continue to follow (3) T2DM (type 2 diabetes mellitus): Code(s): E11.9 - Type 2 diabetes mellitus without complications Status: Acute Assessment and Plan: blood sugars have been stable, continue sliding scale insulin Accu-Cheks (4) HTN (hypertension), benign: Code(s): I10 - Essential (primary) hypertension Status: Acute Assessment and Plan: patient with history of essential hypertension, continue amlodipine, carvedilol (5) Urinary tract infection: Qualifiers: Hematuria presence: without hematuria Urinary tract infection type: acute cystitis Qualified Code(s): N30.00 - Acute cystitis without hematuria Code(s): N39.0 - Urinary tract infection, site not specified Status: Acute Assessment and Plan: patient growing E coli in the urine cultures, garcia sensitive - continue ceftriaxone (6) Pneumonia: Qualifiers: Laterality: bilateral Lung location: unspecified part of lung Pneumonia type: due to unspecified organism Qualified Code(s): J18.9 - Pneumonia, unspecified organism Code(s): J18.9 - Pneumonia, unspecified organism Status: Acute Assessment and Plan: antibiotics as above (7) DVT prophylaxis: Code(s): Z29.9 - Encounter for prophylactic measures, unspecified Status: Acute Assessment and Plan: patient has been placed on therapeutic Lovenox Additional Plan discussed with patient updated her with her condition and plan of care. Code status: Full code Critical care time spent: 33 minutes Due to a high probability of clinically significant, life threatening deterioration, the patient required my highest level of preparedness to intervene emergently and I personally spent this critical care time directly and personally managing the patient. This critical care time included obtaining a history; examining the patient; pulse oximetry; ordering and review of studies; arranging urgent treatment with development of a management plan; evaluation of patient's response to treatment; frequent reassessment; and discussions with other providers. It was exclusive of separately billable procedures and treating other patients and teaching time. Please see Assessment and Plan section and the rest of the note for further information on patient assessment and treatment Subjective Date/time seen: 07/27/19 11:44 Reason for consult: acute respiratory failure with hypoxia, POSITIVE COVID-19, pneumonia 07/27/2019: patient seen examined this morning. Is awake, alert, denies any shortness of breath, complains of occasional cough. Denies any abdominal pain, nausea, vomiting, diarrhea. Patient is on high-flow therapy with 90% FiO2, 50 L flow rate along with 100% non-rebreather Face mask. Patient is hemodynamically stable. Decreased appetite, adequate urine output Review of Systems Review of Systems: All systems reviewed & are unremarkable except as noted in HPI and below Exam Const: General: comfortable and no acute distress HENMT: Mouth: Yes moist mucous membranes O
[2019-07-27 14:13] LABS: Glucose Point of Care 97 (65-105)
--- NOTE | 2019-07-27 15:05 | PM.IMPN ---
Progress Note: A&P Assessment and Plan (1) COVID-19: Code(s): U07.1 - COVID-19 Status: Acute Assessment and Plan: -----patient has confirmed COVID-19. Although she claims to be feeling much better, her condition has worsened. She is now on 15 L non-rebreather. She does not feel short of breath. She continues to have fever but does not have any complaints with that either. I talked to the nurse who says she becomes hypoxic when getting to the bedside commode and even felt dizzy and fell last night overnight because of this. At this time, we will continue oxygen supplementation and supportive care. If she worsens, she will need to be sent to be in the ICU but as of now she is stable. We will recheck COVID labs and chest x-ray in the morning. 07/26/2019 Patient is a 59-year-old female with COVID-19 patient had been requiring higher amount of oxygen and was transferred to ICU from medical floor, spoke with the patient however patient is requiring high amount of oxygen but denies any cough shortness of breath denies any fever or chills, discussed with respiratory coordinator, spoke with the patient the possibility of ventilation and patient has agreed will continue to monitor appreciate respiratory coordinator (2) Urinary tract infection: Qualifiers: Hematuria presence: without hematuria Urinary tract infection type: acute cystitis Qualified Code(s): N30.00 - Acute cystitis without hematuria Code(s): N39.0 - Urinary tract infection, site not specified Status: Acute Assessment and Plan: -----urine culture confirms E coli UTI. Continue ceftriaxone (3) Pneumonia: Qualifiers: Laterality: bilateral Lung location: unspecified part of lung Pneumonia type: due to unspecified organism Qualified Code(s): J18.9 - Pneumonia, unspecified organism Code(s): J18.9 - Pneumonia, unspecified organism Status: Acute Assessment and Plan: ----- viral, continue supportive measures as stated above (4) Acute respiratory failure with hypoxia: Code(s): J96.01 - Acute respiratory failure with hypoxia Status: Acute Assessment and Plan: -----continue 15 L non-rebreather for sats greater than 90. Although she has clinically worsened, the patient states she feels much better. Will continue to monitor closely on continuous pulse oximetry. Notified my supervising physician as she could potentially need the ICU if she worsens. For now, she is clinically stable. Monitor closely patient is agreeable for ventilation if needed (5) T2DM (type 2 diabetes mellitus): Code(s): E11.9 - Type 2 diabetes mellitus without complications Status: Acute Assessment and Plan: -----last glucose 85. Continue a.c. HS Accu-Cheks and sliding scale insulin. (6) HTN (hypertension), benign: Code(s): I10 - Essential (primary) hypertension Status: Acute Assessment and Plan: -----last blood pressure 131/57. Continue amlodipine and carvedilol Subjective Date/time seen: 07/27/19 Patient is a 59-year-old female with COVID-19 patient had been requiring higher amount of oxygen and was transferred to ICU from medical floor on 07/25 , spoke with the patient however patient is requiring high amount of oxygen but denies any cough shortness of breath denies any fever or chills, spoke with the patient the possibility of ventilation and patient has agreed will continue to monitor appreciate respiratory coordinator Review of Systems Review of Systems: All systems reviewed & are unremarkable except as noted in HPI and below Exam Narrative: Exam Narrative: Patient is morbidly obese lying in the bed, does not appear to be in distress patient was seen but not examined as patient is COVID-19 positive Const: General: comfortable and no acute distress HENMT: General nose exam: Normal nares present Eyes: Sclera: sclerae normal Neck: Other: No retraction Res
[2019-07-27 18:28] LABS: Glucose Point of Care 87 (65-105)
[2019-07-27] MEDS: AMLODIPINE BESYLATE 5 MG TABLET 10 MG PO (20:14)
[2019-07-27] MEDS: carvediloL 25 MG TABLET PO (20:15)
[2019-07-27 20:27] LABS: Glucose Point of Care 111 (65-105)
[2019-07-28] VITALS (37 sets, daily range): BP systolic 90–157; BP diastolic 52–123; PULSE 94–130; RESP 15–41; TEMP 36.9–38.7; O2SAT 81–100
[2019-07-28] MEDS: ACETAMINOPHEN 325 MG TABLET 650 MG PO ×2 (00:19→18:17)
[2019-07-28 05:35] LABS: Basophils Absolute Auto 0.1 K/mm3 (0.0-0.1); Basophils Percent Auto 0.5 % (0.2-1.2); Eosinophils Percent Auto 0.1 % (0-4.4); Hematocrit 37.7 % (37.0-47.0); Hemoglobin 11.8 g/dL (12.0-15.0); Immature Granulocyte Absolute 0.33 K/mm3 (0.00-0.031); Immature Granulocyte Percent A 2.8 % (0-0.5); Lymphocytes Absolute Auto 1.48 K/mm3 (0.9-3.2); Lymphocytes Percent Auto 12.8 % (18.3-44.2); Mean Corpuscular HGB Conc 31.3 g/dl (32-36); Mean Corpuscular Hemoglobin 26.5 pg (26-34); Mean Corpuscular Volume 84.5 fl (80-100); Mean Platelet Volume 9.6 fl (7.4-10.4); Monocytes Absolute Auto 0.9 K/mm3 (0.1-0.6); Monocytes Percent Auto 7.5 % (2.6-8.5); Neutrophils Absolute Auto 8.8 K/mm3 (1.3-6.7); Neutrophils Percent Auto 76.3 % (45.5-73.1); Platelet Count Result 649 k/mm3 (150-375); Red Blood Count 4.46 M/mm3 (4.2-5.4); Red Cell Distribution Width 14.8 % (11.5-14.5); White Blood Count 11.6 K/mm3 (4.5-10.0)
[2019-07-28 05:48] LABS: Lactate Dehydrogenase 1427 U/L (313-618); Magnesium 2.3 mg/dL (1.6-2.3); Phosphorus 3.3 mg/dL (2.5-4.5)
[2019-07-28 05:49] LABS: D Dimer 0.95 ug/mL (<0.48)
[2019-07-28 05:55] LABS: Alanine Aminotransferase 20 U/L (4-35); Albumin Level 3.4 g/dL (3.5-5.1); Alkaline Phosphatase 82 U/L (38-126); Aspartate Amino Transferase 54 U/L (14-36); Bilirubin,Total 0.9 mg/dL (0.2-1.3); Blood Urea Nitrogen 16 mg/dL (7-17); Calcium 8.1 mg/dL (8.4-10.2); Carbon Dioxide 29 mmol/L (22-30); Chloride 97 mmol/L (98-107); Estimated CRCL calculation 86 ml/min; Estimated Glomerular Filt Rate > 60; Glucose 102 mg/dL (65-105); Potassium 4.1 mmol/L (3.4-5.0); Sodium 134 mmol/L (137-145)
[2019-07-28 06:21] LABS: CRP 36.2 mg/dL (<1.0)
[2019-07-28] MEDS: ALBUTEROL SULFATE (*SP) AEROSOL 1 PUFF 2 PUFF INHALATION ×3 (08:55→17:12)
--- NOTE | 2019-07-28 09:13 | WPDINTPN ---
Progress Note: A&P Assessment and Plan (1) Acute respiratory failure with hypoxia: Code(s): J96.01 - Acute respiratory failure with hypoxia Status: Acute Assessment and Plan: patient presented with bilateral infiltrates which have worsened on the chest x-ray since admission. Patient tested positive for COVID-19 - continue azithromycin and ceftriaxone - patient currently requiring 75% FiO2 with 45 L flow rate on high-flow nasal cannula therapy - patient is off the non-rebreather mask, O2 sats have been between 95- 100% - chest x-ray with no change (2) COVID-19: Code(s): U07.1 - COVID-19 Status: Acute Assessment and Plan: SARS-CoV-2 PCR is positive on 07/23/2019 - continue droplet, airborne, contact isolation - inflammatory markers are elevated, will continue to follow (3) T2DM (type 2 diabetes mellitus): Code(s): E11.9 - Type 2 diabetes mellitus without complications Status: Acute Assessment and Plan: blood sugars have been stable, continue sliding scale insulin Accu-Cheks (4) HTN (hypertension), benign: Code(s): I10 - Essential (primary) hypertension Status: Acute Assessment and Plan: patient with history of essential hypertension, continue amlodipine, carvedilol (5) Urinary tract infection: Qualifiers: Hematuria presence: without hematuria Urinary tract infection type: acute cystitis Qualified Code(s): N30.00 - Acute cystitis without hematuria Code(s): N39.0 - Urinary tract infection, site not specified Status: Acute Assessment and Plan: patient growing E coli in the urine cultures, garcia sensitive - continue ceftriaxone (6) Pneumonia: Qualifiers: Laterality: bilateral Lung location: unspecified part of lung Pneumonia type: due to unspecified organism Qualified Code(s): J18.9 - Pneumonia, unspecified organism Code(s): J18.9 - Pneumonia, unspecified organism Status: Acute Assessment and Plan: antibiotics as above (7) DVT prophylaxis: Code(s): Z29.9 - Encounter for prophylactic measures, unspecified Status: Acute Assessment and Plan: continue therapeutic Lovenox Additional Plan discussed with patient updated her with her condition and plan of care. Code status: Full code Critical care time spent: 32 minutes Due to a high probability of clinically significant, life threatening deterioration, the patient required my highest level of preparedness to intervene emergently and I personally spent this critical care time directly and personally managing the patient. This critical care time included obtaining a history; examining the patient; pulse oximetry; ordering and review of studies; arranging urgent treatment with development of a management plan; evaluation of patient's response to treatment; frequent reassessment; and discussions with other providers. It was exclusive of separately billable procedures and treating other patients and teaching time. Please see Assessment and Plan section and the rest of the note for further information on patient assessment and treatment Subjective Date/time seen: 07/28/19 09:13 Reason for consult: acute respiratory failure with hypoxia, POSITIVE COVID-19, pneumonia 07/28/2019: patient is awake, alert, denies shortness of breath, states her cough is better. Appetite is decreased, patient has decreased urine output decreased p.o. intake for solids and liquids. Denies any abdominal pain, nausea, vomiting or diarrhea. Patient is on high-flow therapy and 75% FiO2, 45 L flow rate. Patient is off the non-rebreather, sats a 95-100%. Positive bowel movement on 07/27/2019 and 07/28/2019 Review of Systems Review of Systems: All systems reviewed & are unremarkable except as noted in HPI and below Exam Const: General: comfortable and no acute distress HENMT: Mouth: Yes moist mucous membranes Other
[2019-07-28] MEDS: ENOXAPARIN 80 MG/0.8 ML SYRINGE 131 MG SUB-Q ×2 (09:19→23:41)
--- NOTE | 2019-07-28 16:16 | PM.IMPN ---
Progress Note: A&P Assessment and Plan (1) COVID-19: Code(s): U07.1 - COVID-19 Status: Acute Assessment and Plan: -----patient has confirmed COVID-19. Although she claims to be feeling much better, her condition has worsened. She is now on 15 L non-rebreather. She does not feel short of breath. She continues to have fever but does not have any complaints with that either. I talked to the nurse who says she becomes hypoxic when getting to the bedside commode and even felt dizzy and fell last night overnight because of this. At this time, we will continue oxygen supplementation and supportive care. If she worsens, she will need to be sent to be in the ICU but as of now she is stable. We will recheck COVID labs and chest x-ray in the morning. 07/28/19 16:16 Patient is a 59-year-old female with COVID-19 patient had been requiring higher amount of oxygen and was transferred to ICU from medical floor, spoke with the patient on 07/26 however patient is requiring high amount of oxygen but denied any cough shortness of breath denies any fever or chills, today seen patient not examined, stats doing well thumbs up, discussed with her nurse, patient is off non-rebreather mask,Snow Remover has spoken with the patient the possibility of ventilation and patient has agreed will continue to monitor appreciate driver merchandiser (2) Urinary tract infection: Qualifiers: Hematuria presence: without hematuria Urinary tract infection type: acute cystitis Qualified Code(s): N30.00 - Acute cystitis without hematuria Code(s): N39.0 - Urinary tract infection, site not specified Status: Acute Assessment and Plan: -----urine culture confirms E coli UTI. Continue ceftriaxone (3) Pneumonia: Qualifiers: Laterality: bilateral Lung location: unspecified part of lung Pneumonia type: due to unspecified organism Qualified Code(s): J18.9 - Pneumonia, unspecified organism Code(s): J18.9 - Pneumonia, unspecified organism Status: Acute Assessment and Plan: ----- viral, continue supportive measures as stated above (4) Acute respiratory failure with hypoxia: Code(s): J96.01 - Acute respiratory failure with hypoxia Status: Acute Assessment and Plan: -----continue 15 L non-rebreather for sats greater than 90. Although she has clinically worsened, the patient states she feels much better. Will continue to monitor closely on continuous pulse oximetry. Notified my supervising physician as she could potentially need the ICU if she worsens. For now, she is clinically stable. Monitor closely patient is agreeable for ventilation if needed (5) T2DM (type 2 diabetes mellitus): Code(s): E11.9 - Type 2 diabetes mellitus without complications Status: Acute Assessment and Plan: -----last glucose 85. Continue a.c. HS Accu-Cheks and sliding scale insulin. (6) HTN (hypertension), benign: Code(s): I10 - Essential (primary) hypertension Status: Acute Assessment and Plan: -----last blood pressure 131/57. Continue amlodipine and carvedilol Subjective Date/time seen: 07/28/19 16:16 Patient is a 59-year-old female with COVID-19 patient had been requiring higher amount of oxygen and was transferred to ICU from medical floor, spoke with the patient on 07/26 however patient is requiring high amount of oxygen but denied any cough shortness of breath denies any fever or chills, today seen patient not examined, stats doing well thumbs up, discussed with her nurse, patient is off non-rebreather mask,Snow Remover has spoken with the patient the possibility of ventilation and patient has agreed will continue to monitor appreciate driver merchandiser Review of Systems Review of Systems: All systems reviewed & are unremarkable except as noted in HPI and below Exam Narrative: Exam Narrative: Patient is morbidly obese lying in the bed, do
[2019-07-28 17:32] LABS: Glucose Point of Care 118 (65-105)
[2019-07-28 17:32] LABS: Glucose Point of Care 94 (65-105)
[2019-07-28] MEDS: PROPOFOL IV EMULSION 100 ML 40 MG IV CONT ×2 (20:35→22:32)
[2019-07-28 21:01] LABS: Glucose Point of Care 98 (65-105)
--- NOTE | 2019-07-28 22:15 | WPDPROCEDUR ---
Procedures Intubation Intubation Date: 07/28/19 Intubation Time: 20:08 A pre-procedural Time-Out was completed immediately before starting the procedure and confirmed: Patient Identification, Site, Procedure, Patient Position and the Availability of Requisite Equipment: Yes Sedative: etomidate Mg given: 40 Paralytic: succinylcholine Mg given: 40 Laryngoscope: fiber optic video scope Assist device used: fiber optic device ET tube size: cuffed Tube secured depth (cm): 24 Tube secured location: lips Tube placement confirmation: visualized tube passing through cords, equal breath sounds bilaterally, no breath sounds over epigastrium and confirmation by capnometry Patient tolerated procedure: well Intubation complications: none
--- NOTE | 2019-07-28 22:16 | P.PCNBED_ITS ---
Procedures Central Line Placement Right Femoral: Central Line Date: 07/28/19 Central Line Time: 21:00 Discussed w/ the patient/family/POA,the placement of a central venous catheter, including its clinical necessity/indication & associated potential risks, benifits and alternatives.: Yes The patient/family/POA understand(s) and acknowledge(s) the need to proceed with central venous catheter insertion as an important element of the patient's clinical management.: Yes Time Out Performed: Yes Patient Position: trendelenburg Patient placed on monitor/pulse ox: Yes Provider Prep: Max. sterile barrier precautions Central line prep: Chlorhexidine scrub and sterile full body sheet applied Ultrasound used for placement: Yes Central line lumen inserted: triple Amharic: 7 Length (cm): 16 Depth of Insertion (cm): 15 Post procedure: sutured in place, good blood return, all ports aspirated, flushed, capped, tegaderm, hemostatic disc and aseptic technique maintained throughout procedure Patient tolerated procedure: well Additional comments: The patient was a difficult central line due to her body habitus. Despite use of the ultrasound the 1st 2 attempts resulted in arterial blood return. On 3rd attempt successful return of venous blood. The femoral vein was deep approximately 4-5 cm deep.
--- NOTE | 2019-07-28 22:18 | PM.CCN ---
Critical Care Event Note Summary Code activated: No Narrative: 07/28/2019 at 8:00 p.m. Nursing staff called me around 8:00 p.m. stating the patient was having increased respiratory effort, desaturation and significant tachypnea. When I arrived at the patient's bedside her oxygenation had recovered NG was satting 92% on face mask and Oxymizer. However her respiratory rate was in the mid 30s and she was diaphoretic. The patient had just had a diarrheal stool for which the nursing staff had to clean the patient. When I went to evaluate the patient she had had yet another diarrheal stool. The patient had not tolerated position changes earlier and given her respiratory status and respiratory distress the patient was subsequently intubated with RSI. She was preoxygenated and then bagged with bag-valve mask. Her oxygen saturations were above 94% the entirety of intubation process. The patient received 40 of etomidate and succinylcholine and was intubated with a 7.5 ET tube measuring 24 cm at the lip. Patient was not difficult to bag. A who placed on a ventilator initially with tidal volume 400 rate of 18 peep of 8 with 100% FiO2. The patient rapidly woke up from RSI and subsequently was started on fentanyl and Versed infusions. She received a 50 mcg bolus of fentanyl was quickly maximized however the patient was alarming high pressures and coughing against the vent. Subsequently the patient received a 2mL push of propofol with improved tolerance of ventilator. The patient's blood pressures were in the low 100s over 40s prior to propofol administration. Falling propofol administration the patient's blood pressures were soft at 83 over 40s. Subsequently the patient's fentanyl was decreased down to 100 mcg with improvement of her blood pressures to 90 systolic. Given that the patient only had peripheral access central line was placed in the right femoral vein. The patient's blood pressures have remained above the 90s thus far inter maps have remained above 70. Chest x-ray and KUB were personally reviewed demonstrated appropriate placement of ET tube and OG tube. ABG was obtained following intubation which was a mixed specimen. PH is 7.38 pCO2 47 PO2 45 bicarb of 27 with 22% reduced hemoglobin. Order was given increase the patient's peep to 10 and increased ventilator rate to 24. I contacted the bio medical technician and updated him as to patient's change in condition and discussed the care thus far. He agreed with increasing the patient's peep. Nursing staff informed me patient is not having as much to synchrony with the vent as she was previously. We discussed the possibility of using a paralytic. However after I hung up with the bio medical technician went to re-evaluate the patient and she was not having dyssynchrony with the vent and seemed War comfortable. However the patient starts to developed more dyssynchrony of a low threshold for initiating paralytic therapy. 60 minutes was spent in critical care activities in exclusion of procedures. This case had a high probability of a clinically significant, sudden, or life threatening deterioration of this patient's condition which required my full and direct attention, intervention and personal management. Critical care time: 30 - 74 mins
[2019-07-28 22:29] LABS: Alveolar/Arterial O2 Gradient 620.2 mmHg; Base Excess ABG 2.2 mEq/l (+/-2.0); Carboxyhemoglobin 0.3 % THb (0-2.0); Fractional Inspired Oxygen 100 %; HCO3 ABG 27.8 mEq/l (22.0-26.0); Methemoglobin ABG 0.5 %THb (0-1.5); Oxyhemoglobin 76.5 % THb (90.0-100.0); PCO2 ABG 47.3 mmHg (35.0-45.0); PO2 FiO2 Ratio Arterial Blood 0.46 %; Reduced Hemoglobin 22.7 %THb (0-5.0); Total Hemoglobin 12.1 g/dL (12.0-18.0); pH ABG 7.387 (7.350-7.450)
[2019-07-28 22:32] LABS: Device VENTILATOR; Modified Allen's Test Pass; Oxygen Saturation ABG 80.6 % (95.0-100.0); PO2 ABG 45.5 mmHg (80.0-100.0); Site Drawn RIGHT RADIAL
[2019-07-28 22:33] LABS: Arterial Blood Gas PEEP 8 cmH2O; Arterial Blood Gas Pressure Support 0 cmH2O; Arterial Blood Gas Tidal Volume 400 ml; Arterial Blood Gas Vent Mode CMV; Arterial Blood Gas Ventilator rate 18 /MIN
[2019-07-28 23:29] LABS: Glucose Point of Care 138 (65-105)
[2019-07-29] VITALS (20 sets, daily range): BP systolic 93–140; BP diastolic 54–66; PULSE 83–106; RESP 17–24; TEMP 36.9–37.9; O2SAT 80–100
[2019-07-29] MEDS: PROPOFOL IV EMULSION 100 ML 36 MG IV CONT ×4 (01:09→08:30)
[2019-07-29 03:23] LABS: Alveolar/Arterial O2 Gradient 623.7 mmHg; Base Excess ABG 4.8 mEq/l (+/-2.0); Carboxyhemoglobin 0.3 % THb (0-2.0); Fractional Inspired Oxygen 100 %; HCO3 ABG 29.7 mEq/l (22.0-26.0); Methemoglobin ABG 0.3 %THb (0-1.5); Oxyhemoglobin 77.3 % THb (90.0-100.0); PCO2 ABG 45.3 mmHg (35.0-45.0); PO2 FiO2 Ratio Arterial Blood 0.44 %; Reduced Hemoglobin 22.1 %THb (0-5.0); pH ABG 7.434 (7.350-7.450)
[2019-07-29 03:25] LABS: Device VENTILATOR; Modified Allen's Test Pass; Oxygen Saturation ABG 81.1 % (95.0-100.0); Site Drawn LEFT RADIAL
[2019-07-29 03:26] LABS: Arterial Blood Gas PEEP 10 cmH2O; Arterial Blood Gas Pressure Support 0 cmH2O; Arterial Blood Gas Tidal Volume 400 ml; Arterial Blood Gas Vent Mode CMV; Arterial Blood Gas Ventilator rate 18 /MIN
--- NOTE | 2019-07-29 04:03 | PC.NURSE ---
Call attempted to speak to patients daughter and update to current status. No answer, message left for daughter to call back PRANAV.
--- NOTE | 2019-07-29 04:05 | P.RRN_ITS ---
Critical Care Event Note Summary Code activated: No Narrative: 07/29/2019 at 03:00 The patient's oxygen saturations have been reading in the low 90's on finger pulse oximetry. However patient's ABG was more consistent with pulse oximetry of was in the low 80s. I personally came in retrieve the patient's ABG from 2 different site with the same results. The patient was not having any dyssynchrony with the ventilator. The her sedation had been titrated downward. Her pressures had been remaining stable. She was pulling tidal volumes of 350- 400. When the patient's pulse oximetry was checked at other sites they were more consistent with the patient's ABG results. (pH is 7.43, pCO2 of 45, PO2 44, bicarb of 29) the other sites tested included her ear lobe, forehead and nasal septum. I contacted the farmworker bulbs at that time and discuss the patient's case. Her peep was increased from 10 to 12, 15 and subsequently 20. With her peep of 20 her sats were 88%. With increase of the patient's peep she developed hypotension. The patient received 1 L normal saline as she had min imal urine output since Bo catheter placement. And Levophed was initiated. On Levophed of 10 patient's blood pressure improved from 67 systolic up to 100 systolic. As the patient was not having any dyssynchrony there would be no benefit for paralytic. The patient was then started on Flolan. The patient rapidly had improvement of her pulse ox to the mid 90s within just a few minutes of Flolan administration. ABG obtained approximately 20 minutes after initiation of Flolan demonstrated pH is 7.425, pCO2 of 45, PO2 of 304, bicarb of 29. Given the drastic improvement in the patient's ABG and the fact that the patient was hypotensive due the increase in PEEP the patient's peep was dropped to 15. Her oxygen saturation has remained stable at 98% with reduced peep. 60 minutes was spent in critical care activities. This case had a high probability of a clinically significant, sudden, or life threatening deterioration of this patient's condition which required my full and direct attention, intervention and personal management. Critical care time: 30 - 74 mins
[2019-07-29] MEDS: NOREPINEPHRINE 8 MG/D5W 250 ML 8 MG/250 ML BAG 9.4 MG IV CONT (04:44)
[2019-07-29] MEDS: SODIUM CHLORIDE 0.9% IV 1,000 ML 999 ML IV CONT (04:55)
[2019-07-29] MEDS: EPOPROSTENOL SODIUM 0.5 MG VIAL 1 MG INHALATION ×3 (04:58→14:38)
[2019-07-29 05:16] LABS: Alveolar/Arterial O2 Gradient 362.4 mmHg; Base Excess ABG 4.2 mEq/l (+/-2.0); Carboxyhemoglobin 0.3 % THb (0-2.0); Fractional Inspired Oxygen 100 %; HCO3 ABG 29.4 mEq/l (22.0-26.0); Methemoglobin ABG 0.4 %THb (0-1.5); Oxygen Saturation ABG 99.7 % (95.0-100.0); PCO2 ABG 45.9 mmHg (35.0-45.0); PO2 ABG 304.7 mmHg (80.0-100.0); PO2 FiO2 Ratio Arterial Blood 3.05 %; Reduced Hemoglobin 1.3 %THb (0-5.0); Total Hemoglobin 10.7 g/dL (12.0-18.0); pH ABG 7.425 (7.350-7.450)
[2019-07-29 05:19] LABS: Device VENTILATOR; Modified Allen's Test Pass; Site Drawn RIGHT RADIAL
[2019-07-29 05:20] LABS: Arterial Blood Gas PEEP 20 cmH2O; Arterial Blood Gas Tidal Volume 400 ml; Arterial Blood Gas Vent Mode CMV; Arterial Blood Gas Ventilator rate 18 /MIN
[2019-07-29 06:28] LABS: Hematocrit 33.5 % (37.0-47.0); Hemoglobin 10.6 g/dL (12.0-15.0); Mean Corpuscular HGB Conc 31.6 g/dl (32-36); Mean Corpuscular Hemoglobin 26.2 pg (26-34); Mean Corpuscular Volume 82.7 fl (80-100); Mean Platelet Volume 9.5 fl (7.4-10.4); Platelet Count Result 741 k/mm3 (150-375); Red Blood Count 4.05 M/mm3 (4.2-5.4); Red Cell Distribution Width 14.8 % (11.5-14.5); White Blood Count 18.9 K/mm3 (4.5-10.0)
[2019-07-29 06:41] LABS: D Dimer 1.32 ug/mL (<0.48)
[2019-07-29 06:43] LABS: Potassium 3.9 mmol/L (3.4-5.0)
[2019-07-29 07:15] LABS: Atypical Lymphocytes Present; Band Neutrophils Percent 6 % (0-6); Hypochromasia 2+ (NORMAL); Large Platelets Present; Lymphocytes Absolute Manual 1.51 K/mm3 (1.1-4.5); Metamyelocytes Percent 1 %; Monocytes Absolute Manual 0.18 K/mm3 (0.1-0.90); Monocytes Percent Manual 1 % (3-9); Neutrophils Absolute Manual 17.01 K/mm3 (1.7-7.2); Neutrophils Percent Manual 84 % (46-73); Platelet Estimate Increased (Adequate); Total Cells Counted 100
[2019-07-29 07:28] LABS: Lactate Dehydrogenase 1320 U/L (313-618); Magnesium 2.3 mg/dL (1.6-2.3); Phosphorus 3.4 mg/dL (2.5-4.5)
[2019-07-29 09:06] LABS: Alanine Aminotransferase 15 U/L (4-35); Albumin Level 2.9 g/dL (3.5-5.1); Alkaline Phosphatase 78 U/L (38-126); Aspartate Amino Transferase 45 U/L (14-36); Bilirubin,Total 0.8 mg/dL (0.2-1.3); Blood Urea Nitrogen 20 mg/dL (7-17); Calcium 7.4 mg/dL (8.4-10.2); Carbon Dioxide 32 mmol/L (22-30); Chloride 97 mmol/L (98-107); Estimated CRCL calculation 53 ml/min; Estimated Glomerular Filt Rate 43; Glucose 148 mg/dL (65-105); Sodium 133 mmol/L (137-145)
[2019-07-29 09:07] LABS: CRP 43.5 mg/dL (<1.0)
--- NOTE | 2019-07-29 09:34 | WPDINTPN ---
Progress Note: A&P Assessment and Plan (1) Acute respiratory failure with hypoxia: Code(s): J96.01 - Acute respiratory failure with hypoxia Status: Acute Assessment and Plan: patient presented with bilateral infiltrates which have worsened on the chest x-ray since admission. Patient tested positive for COVID-19 - Patient desaturated on 07/28/2019 after being cleaned as she had a bowel movement. O2 sats when the 70s and early 80s, patient was on high-flow therapy which was increased to 100% FiO2 and 60 L flow rate, she was also placed back on the 100% non-rebreather mask. patient was hypoxemic on ABGs. Decision was made to intubate the patient. - Initially placed on peep of 20, started on Flolan, peep down to 15 this morning - continue azithromycin and ceftriaxone - chest x-ray and ABGs reviewed, chest x-ray with worsening diffuse bilateral lung disease. - Patient on 100% FiO2 and peep of 15 along with Flolan, given worsening of the chest x-ray and sudden decline will try and transfer the patient to a tertiary hospital for possible ECMO (2) COVID-19: Code(s): U07.1 - COVID-19 Status: Acute Assessment and Plan: SARS-CoV-2 PCR is positive on 07/23/2019 - continue droplet, airborne, contact isolation - inflammatory markers are elevated, will continue to follow (3) T2DM (type 2 diabetes mellitus): Code(s): E11.9 - Type 2 diabetes mellitus without complications Status: Acute Assessment and Plan: blood sugars have been stable, continue sliding scale insulin Accu-Cheks (4) HTN (hypertension), benign: Code(s): I10 - Essential (primary) hypertension Status: Acute Assessment and Plan: patient with history of essential hypertension, HOLD amlodipine, carvedilol (5) Urinary tract infection: Qualifiers: Hematuria presence: without hematuria Urinary tract infection type: acute cystitis Qualified Code(s): N30.00 - Acute cystitis without hematuria Code(s): N39.0 - Urinary tract infection, site not specified Status: Acute Assessment and Plan: patient growing E coli in the urine cultures, garcia sensitive - continue ceftriaxone (6) Pneumonia: Qualifiers: Laterality: bilateral Lung location: unspecified part of lung Pneumonia type: due to unspecified organism Qualified Code(s): J18.9 - Pneumonia, unspecified organism Code(s): J18.9 - Pneumonia, unspecified organism Status: Acute Assessment and Plan: antibiotics as above (7) DVT prophylaxis: Code(s): Z29.9 - Encounter for prophylactic measures, unspecified Status: Acute Assessment and Plan: continue therapeutic Lovenox (8) Acute kidney injury: Code(s): N17.9 - Acute kidney failure, unspecified Status: Acute Assessment and Plan: patient with decreased urine output, creatinine increased to 1.50 from 0.9 - patient has been having increasing liquid stools, was given 1 L IV fluid, - now also on Levophed for hypotension - patient may require CRRT, will transfer patient to tertiary center. - Additional Plan discussed with Qian Charles, daughter, and her with patient's condition and plan of care. I updated regarding intubation and placing her on mechanical ventilation, central line and arterial line placement. She is also aware that patient may transfer to a tertiary hospital for higher level of care , to which she is agreeable Code status: Full code Critical care time spent: 47 minutes Due to a high probability of clinically significant, life threatening deterioration, the patient required my highest level of preparedness to intervene emergently and I personally spent this critical care time directly and personally managing the patient. This critical care time included obtaining a history; examining the patient; pulse oximetry; ordering and review of studies; arranging urgent treatment w
[2019-07-29 09:49] LABS: Base Excess ABG 2.8 mEq/l (+/-2.0); Carboxyhemoglobin 0.3 % THb (0-2.0); Fractional Inspired Oxygen 100 %; HCO3 ABG 28.3 mEq/l (22.0-26.0); Methemoglobin ABG 0.5 %THb (0-1.5); Oxygen Content ABG 15.8 %vol (16.0-22.0); Oxyhemoglobin 95.1 % THb (90.0-100.0); PCO2 ABG 47.4 mmHg (35.0-45.0); PO2 ABG 92.6 mmHg (80.0-100.0); PO2 FiO2 Ratio Arterial Blood 0.93 %; Reduced Hemoglobin 4.1 %THb (0-5.0); Total Hemoglobin 11.7 g/dL (12.0-18.0); pH ABG 7.394 (7.350-7.450)
[2019-07-29 09:50] LABS: Arterial Blood Gas Vent Mode ASSIST CONTROL; Arterial Blood Gas Ventilator rate 18 /MIN; Device VENTILATOR; Site Drawn ARTLINE
[2019-07-29 09:51] LABS: Arterial Blood Gas PEEP 15 cmH2O; Arterial Blood Gas Tidal Volume 400 ml
--- NOTE | 2019-07-29 09:59 | WPDPROCEDUR ---
Procedures Arterial Line Arterial Line Date: 07/29/19 Arterial Line Time: 09:22 Perfomed Emergently - Given emergent patient conditions, temporal constraints may have precluded informed consent: Yes Time Out Performed: Yes Patient Position: supine Sql Report Analyst Prep: sterile gown, sterile gloves and mask Site: left and femoral Site Prep: chlorhexidine and sterile drape Technique used: ultrasound-guided Size (Gauge): 16 Length: 12 cm Closure/Dressing: suture, antimicrobial disc and tegaderm Patient tolerated procedure: well and no complications Complications: none Additional comments: right radial artery was attempted to place an arterial line, I was unsuccessful on 3 attempts, decided to place a left femoral arterial line.
--- NOTE | 2019-07-29 10:40 | PM.TDS ---
Transfer Discharge Sum: Prov Provider Date of admission: 07/23/19 17:06 Primary care physician: Sheyla WhitmanVu Admitting clinician: Pooja Dexter MD DS: Diagnosis Admitting Diagnosis Admitting Diagnosis: Contact with and (suspected) exposure to other viral communicable diseases Transfer Discharge Sum: Med Medications Active and Home Medications: Home Medications amlodipine 10 mg PO HS 07/23/19 [History Confirmed 07/23/19] atorvastatin 40 mg PO DAILY 07/23/19 [History Confirmed 07/23/19] carvedilol 25 mg PO HS 07/23/19 [History Confirmed 07/23/19] glimepiride 1 mg PO HS 07/23/19 [History Confirmed 07/23/19] Active Medications Acetaminophen (Tylenol Tablet) 650 mg PO Q6H PRN PRN Reason: Mild Pain (1-3) or Fever Last Admin: 07/28/19 18:17 Dose: 650 mg Documented by: Albuterol (Proventil Hfa) 2 puff INHALATION QIDRT [facility] Last Admin: 07/28/19 17:12 Dose: 2 puff Documented by: Amlodipine Besylate (Norvasc) 10 mg PO [facility] Last Admin: 07/28/19 22:52 Dose: Not Given Documented by: Carvedilol (Coreg) 25 mg PO [facility] Last Admin: 07/28/19 23:41 Dose: Not Given Documented by: Dextrose (Dextrose 50% Syringe) 12.5 gm IV PUSH PRN PRN; Protocol PRN Reason: Hypoglycemia Enoxaparin Sodium (Lovenox) 131 mg SUB-Q Q12HR [facility] Last Admin: 07/28/19 23:41 Dose: 131 mg Documented by: Epoprostenol Sodium (Flolan) 1 mg INHALATION PRN PRN PRN Reason: Titrate Last Admin: 07/29/19 10:03 Dose: 1 mg Documented by: Glucagon (Glucagon For Inj) 1 mg IM PRN PRN; Protocol PRN Reason: Hypoglycemia Glucose (Glutose 15) 15 gm PO PRN PRN; Protocol PRN Reason: Hypoglycemia Ceftriaxone Sodium/Dextrose (Rocephin 1 Gm/D5w 50 Ml) 1 gm in 50 mls @ 100 mls/hr IVPB Q24H [facility] Last Infusion: 07/28/19 18:43 Dose: Infused Documented by: Dextrose (Dextrose 5% 1,000 Ml) 1,000 mls @ 100 mls/hr IVPB PRN PRN; Protocol PRN Reason: Hypoglycemia Azithromycin (Zithromax) 500 mg in 250 mls @ 250 mls/hr IVPB QAM [facility] Last Infusion: 07/28/19 10:20 Dose: Infused Documented by: Midazolam HCl (Versed 50 Mg/D5w 100 Ml) 50 mg in 100 mls @ 8 mls/hr IV CONT .[id number] DANNY; Protocol Last Admin: 07/29/19 05:04 Dose: 4 mg/hr, 8 mls/hr Documented by: Fentanyl Citrate (Fentanyl 2,500 Mcg/Ns 250 Ml) 2,500 mcg in 250 mls @ 7.5 mls/hr IV CONT .[id number] DANNY; Protocol Last Titration: 07/29/19 04:56 Dose: 75 mcg/hr, 7.5 mls/hr Documented by: Propofol (Diprivan) 100 mls @ 36.018 mls/hr IV CONT .[id number] [facility]; Protocol Last Admin: 07/29/19 06:57 Dose: 45 mcg/kg/min, 36 mls/hr Documented by: Norepinephrine Bitartrate (Levophed 8 Mg/D5w 250 Ml) 8 mg in 250 mls @ 16.875 mls/hr IV CONT .[id number] [facility]; Protocol Last Titration: 07/29/19 06:02 Dose: 9 mcg/min, 16.9 mls/hr Documented by: Cisatracurium Besylate 200 mg/ (Dextrose) 500 mls @ 60.48 mls/hr IV CONT .Q8H17M [facility]; Protocol Insulin Aspart (Novolog) 2 - 5 units SUB-Q TIDWM [facility]; Protocol Last Admin: 07/28/19 18:13 Dose: Not Given Documented by: Multi-Ingred Cream/Lotion/Oil/Oint (Lubrifresh Pm Eye Ointment) 1 applic EACH EYE Q12HR [facility] Last Admin: 07/29/19 01:09 Dose: 1 applic Documented by: Multi-Ingred Cream/Lotion/Oil/Oint (Lubrifresh Pm Eye Ointment) 1 applic EACH EYE Q12HR [facility] Transfer Discharge Sum: Hosp Hospital Course Hospital course: Alina Charles is a 59 year old female patient has confirmed COVID-19. Although she claims to be feeling much better, her condition has worsened. She is now on 15 L non-rebreather. She does not feel short of breath. She continues to have fever but does not have any complaints with that either. I talked to the nurse who says she becomes hypoxic when getting to the bedside commode and even felt dizzy and fell last night overnight because of this. At this time, we will continue oxygen supplementation and supportive care. If she worsens, she will need to be sent to be in the ICU but as of now she is stable. We will recheck COVID labs and
[2019-07-29] MEDS: CISATRACURIUM BESYLATE 20 MG/10 ML VIAL 20.2 MG IV PUSH (12:16)
--- NOTE | 2019-07-29 14:35 | PCRCNOTE ---
ALBUTEROL INHALER NOT GIVEN; PT. IS ON FLOLAN.
[2019-07-29] MEDS: ROCURONIUM BROMIDE 50 MG/5 ML VIAL 100 MG IV PUSH (14:44)
[2019-07-29 17:25] LABS: Glucose Point of Care 129 (65-105)
== END 2019-07-29 15:23 | disposition short-term general hospital (02) | DRG 137 ==
LOC: ANHED 17:19 → ANH3MEDSUR 17:59 → ANHICU 07-26 13:21 → ANH3MEDSUR 08-02 08:13 → ANHICU 08-02 08:13
PROVIDERS: Internal Medicine; Physician Assistant; Admitting Provider Hospitalist; Emergency Provider Emergency Medicine; PCP Internal Medicine Infectious Disease; Visit Provider Family Medicine
DX: U07.1 COVID-19 (principal); J96.01 Acute respiratory failure with hypoxia; N17.9 Acute kidney failure, unspecified; J12.89 Other viral pneumonia; I95.9 Hypotension, unspecified; N30.00 Acute cystitis without hematuria; B96.20 Unspecified Escherichia coli [E. coli] as the cause of diseases classified elsewhere; E66.01 Morbid (severe) obesity due to excess calories; Z68.41 Body mass index [BMI] 40.0-44.9, adult; Z96.652 Presence of left artificial knee joint; W18.39XA Other fall on same level, initial encounter
CPT/HCPCS: 31500; 36415; 36600; 71045; 80048; 80053; 81001; 82375; 82728; 82805; 83050; 83605; 83615; 83690; 83735; 84100; 85025; 85027; 85380; 86140; 87040; 87077; 87086; 87088; 87186; 87635; 93005; 94002; 94640; 96365; 96367; 96375; 99285; A9270; C1751; J0131; J0456; J0696; J1650; J2250; J2405; J2704; J3010; J7030; J7040; J7060; J7120; U0003

== ENCOUNTER 2022-02-12 08:58 | Observation (INO) | payer BC, SELFPAY ==
--- NOTE | ~2022-02-12 | CT_ITS ---
EXAMINATION: CTA chest PE protocol DATE: 02/12/2022 11:39 INDICATION: Shortness of breath. Hypoxia. TECHNIQUE: Computed tomography angiography (CTA) of the chest was performed with 100 mL Omnipaque-350 intravenous contrast timed to evaluate the pulmonary arteries. Coronal maximum intensity projection 3D-reconstructions were created by the technologist. Automated exposure control and iterative reconst ruction technique were employed. Exam dose: 910.12 mGy-cm total exam DLP. COMPARISON: 02/12/2022 AP and lateral chest FINDINGS: There is diagnostic contrast enhancement of the pulmonary arteries and no evidence of pulmo nary embolism. No thoracic aortic aneurysm or dissection. Cardiomegaly. No pericardial or pleural effusion. No hilar or mediastinal mass lesion or lymphadenopathy. Minimal discoid atelectasis or scarring, primarily in the lower lung zones. No pulmonary consolidatio n or pulmonary mass lesion is detected. No pneumothorax. Small sliding hiatal hernia. Normal morphology of the adrenal glands. Diffuse idiopathic skeletal hyperostosis of the thoracolumbar spine. No suspicious osteolytic or oste oblastic lesions. IMPRESSION: Cardiomegaly Occasional scattered areas of mild discoid scarring or atelectasis No evidence of pulmonary embolism Reviewed, dictated and finalized at [facility]. Reviewed, dictated and finalized at location [facility]. Y TENDER
--- NOTE | ~2022-02-12 | XR_ITS ---
EXAMINATION: XR chest 2V DATE: 02/12/2022 09:39 INDICATION: Palpitations. TECHNIQUE: Frontal and lateral views of the chest were obtained on 3 radiographs. COMPARISON: Chest single view 07/29/2019 FINDINGS: There is a diffuse interstitial pattern in the lungs, consistent with mild pulmonary edema. No pleural effusion or pneumothorax. Cardiomegaly is noted. IMPRESSION: 1. Mild pulmonary edema. 2. Cardiomegaly. Reviewed, dictated and finalized at location [facility]. MAYONNAISE
[2022-02-12 08:56] VITALS: BP 176/109; PULSE 85; RESP 25; TEMP 36.6; O2SAT 97
--- NOTE | 2022-02-12 09:05 | ECG_ITS ---
Measurements Intervals [place] Rate: 87 P: 64 ND: 188 QRS: 6 QRSD: 87 T: 68 QT: 389 QTc: 469 Interpretive Statements SINUS RHYTHM WITH OCCASIONAL VENTRICULAR PREMATURE COMPLEXES MODERATE VOLTAGE CRITERIA FOR LVH, CONSIDER NORMAL VARIANT [MEETS CRITERIA IN ONE OF: R(aVL), S(V1), R(V5), R(V5/V6)+S(V1)] NONSPECIFIC T-WAVE ABNORMALITY COMPARED TO ECG 07/23/2019 13:04:41 SINUS RHYTHM NOW PRESENT Electronically Signed On 02-12-2022 10:23:54 UNEMPLOYMENT INSURANCE HEARING OFFICER by Alexis Xie M.D.
--- NOTE | 2022-02-12 09:15 | ED.ARRPALP ---
HPI - Arrhythmia/Palpitations General Chief Complaint: Arrhythmia/Palpitations Stated Complaint: hypoxic, irregular HR Time Seen by Provider: 02/12/22 09:02 History of Present Illness HPI narrative: 62-year-old female here for evaluation from cataract surgery center after she was found to have an irregular heart rate and oxygen saturations at 89%. They contacted her primary care provider who recommended ED evaluation. Patient is asymptomatic and denies any chest pain, shortness of breath, fevers, chills, palpitations, weakness or syncope. She tells me she has a history of hypertension and diabetes, denies history of heart failure or lung disease. Her primary care doctor just placed her on hydrochlorothiazide for hypertension. Related Data Home Medications Medication Instructions Recorded Confirmed amlodipine 10 mg tablet 10 mg PO HS 07/23/19 02/12/22 atorvastatin 40 mg tablet 80 mg PO DAILY 07/23/19 02/12/22 carvedilol 25 mg tablet 25 mg PO HS 07/23/19 02/12/22 glimepiride 1 mg tablet 1 mg PO HS 07/23/19 02/12/22 aspirin 81 mg tablet,delayed 81 mg PO DAILY 02/12/22 02/12/22 release hydrochlorothiazide 25 mg tablet 25 mg PO DAILY 02/12/22 02/12/22 Allergies Allergy/AdvReac Type Severity Reaction Status Date / Time No Known Allergies Allergy Verified 02/12/22 09:04 Review of Systems Review of Systems: Gen.: Denies fevers or chills Eyes: Denies eye pain or visual change ENT: Denies congestion Respiratory: Denies shortness of breath or cough CV: Denies chest pain or palpitations GI: Denies abdominal pain nausea, emesis or diarrhea denies burning, urgency, frequency or hematuria Musculoskeletal: Denies back pain or muscle pain Neuro: Denies numbness, tingling, weakness or focal weakness Skin: Denies rash Except as documented, all other systems reviewed and negative [facility] Past Medical History Medical History History of diabetes mellitus History of hypertension HLD (hyperlipidemia) Surgical History Surgical History History of cholecystectomy History of left knee replacement Family History Family History Mother Diabetes mellitus Cerebrovascular accident Hypertension Cancer of lung Father Unknown family medical history Social History Social History (Updated 02/12/22 @ 13:21 by Sabrina Garcia NP) Social History: 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 She does not drink, former smoke, or do drugs. She is a former smoker but smoked occasionally and quit about 20 years ago. 4 children. She would like to be a full code. kids poa Smoking packs per day: 4 Smoking cigarettes per day: 80.0 Years smoked: 29 Smoking pack-years: 116.00 Smoking status: Former smoker Tobacco type: cigarettes Second hand tobacco smoke exposure: Yes Smoking end date: 03/14/04 Alcohol intake: never Substance use: never Gender identity (if verbalized by the patient): Female Spiritual care concerns: No Exam Narrative: APPEARANCE: Well appearing, no pain in distress, well-nourished. Head: Normocephalic and atraumatic. EYES: PERRLA/EOMI, conjunctivae clear NOSE: No nasal drainage EARS: External ear normal in appearance THROAT: Oropharynx is clear. Mucous membranes are moist. NECK: Supple. No adenopathy, no masses. RESPIRATORY: Airway patent, respirations nonlabored. Clear to auscultation bilaterally, no rales, rhonchi, wheezing. CARDIOVASCULAR: Regular rate and rhythm without murmurs, rubs, or gallops. ABDOMINAL: Normoactive bowel sounds. Soft, nontender, nondistended. No rebound tenderness or guarding. MUSCULOSKELETAL: 1+ pitting edema to bilateral lower extremities. Extremities are warm and well-perfused. Moves all extremities well. NEURO: Normal speech. No focal neurologic deficits. SKIN: Skin is warm and dry
[2022-02-12 09:33] LABS: Basophils Percent Auto 0.2 % (0.2-1.2); Eosinophils Percent Auto 0.3 % (0-4.4); Hematocrit 40.5 % (37.0-47.0); Hemoglobin 12.4 g/dL (12.0-15.0); Immature Granulocyte Absolute 0.03 K/mm3 (0.00-0.031); Immature Granulocyte Percent A 0.3 % (0-0.5); Lymphocytes Absolute Auto 2.45 K/mm3 (0.9-3.2); Lymphocytes Percent Auto 25.3 % (18.3-44.2); Mean Corpuscular HGB Conc 30.6 g/dl (32-36); Mean Corpuscular Hemoglobin 26.3 pg (26-34); Mean Corpuscular Volume 85.8 fl (80-100); Mean Platelet Volume 10.5 fl (7.4-10.4); Monocytes Absolute Auto 0.8 K/mm3 (0.1-0.6); Monocytes Percent Auto 7.9 % (2.6-8.5); Neutrophils Absolute Auto 6.4 K/mm3 (1.3-6.7); Platelet Count Result 382 k/mm3 (150-375); Red Blood Count 4.72 M/mm3 (4.2-5.4); Red Cell Distribution Width 15.6 % (11.5-14.5); White Blood Count 9.7 K/mm3 (4.5-10.0)
[2022-02-12 09:47] LABS: Alanine Aminotransferase 14 U/L (6-35); Alkaline Phosphatase 114 U/L (38-126); Anion Gap 7 mmol/L (8-16); Aspartate Amino Transferase 22 U/L (14-36); Bilirubin,Total 0.6 mg/dL (0.2-1.3); Blood Urea Nitrogen 18 mg/dL (7-17); Calcium 8.5 mg/dL (8.4-10.2); Carbon Dioxide 30 mmol/L (22-30); Chloride 102 mmol/L (98-107); Estimated CRCL calculation 99 ml/min; Estimated Glomerular Filt Rate > 60; Glucose 142 mg/dL (65-110); Potassium 3.7 mmol/L (3.4-5.0); Sodium 139 mmol/L (137-145)
[2022-02-12 09:56] LABS: NT Pro B Type Natriuretic Pept 447 pg/mL (5-100); Troponin I < 0.012 ng/mL (0.000-0.034)
[2022-02-12 11:10] LABS: Alveolar/Arterial O2 Gradient 26.3 mmHg; Base Excess ABG 7.6 mEq/l (+/-2.0); Fractional Inspired Oxygen 21 %; HCO3 ABG 33.4 mEq/l (22.0-26.0); Oxygen Content ABG 16.8 %vol (16.0-22.0); Oxyhemoglobin 90.7 % THb (90.0-100.0); PCO2 ABG 51.4 mmHg (35.0-45.0); PO2 ABG 61.9 mmHg (80.0-100.0); PO2 FiO2 Ratio Arterial Blood 2.95 %; Total Hemoglobin 13.2 g/dL (12.0-18.0)
[2022-02-12 11:12] LABS: Device ROOM AIR; Modified Allen's Test Pass; Site Drawn LEFT RADIAL
[2022-02-12 11:13] VITALS: BP 146/80; PULSE 78; RESP 16; O2SAT 95
[2022-02-12 12:22] LABS: Influenza A QL RT-PCR Negative (Negative); Influenza B QL RT-PCR Negative (Negative); SARS-CoV-2 RNA PCR Negative
--- NOTE | 2022-02-12 13:18 | PM.IMHP ---
H&P: HPI History of Present Illness Date/Time: 02/12/22 13:18 Chief Complaint: Hypoxic, dyspneic on exertion Narrative: This is a 62-year-old female patient who had gone for left eye cataract extraction today and was found to have an irregular heartbeat and oxygen level at 89%. They contacted her primary care provider who recommended that the patient go to the emergency room to be evaluated. The patient was asymptomatic and denied any chest pain or shortness of breath or any fevers or palpitations or weakness when she came to the emergency room. She does have a history of hypertension and diabetes and denies any history of congestive heart failure. The patient did not take her a.m. medications because of her pending surgery. The patient was placed on hydrochlorothiazide for hypertension per her primary care doctor. On her ABGs her pH was 7.43 CO2 was 51.4 PO2 61.9. Bicarb 33.4. The patient is currently on room air. She was found to be negative for influenza A/B and COVID. Chest x-ray was read as mild pulmonary edema. Cardiomegaly. CTA was read as occasional scattered areas of mild discoid scarring or atelectasis. No evidence of pulmonary embolism. The patient was given IV Lasix. An echo has been ordered. The patient is being admitted to observation status on the date of service of 02/12/2022. Review of Systems Review of Systems: See HPI All systems reviewed & are unremarkable except as noted in HPI and below Constitutional: Constitutional: Reports as per HPI and Reports no additional constitutional complaints Eyes: Eyes: Reports as per HPI and Reports no additional eye complaints ENT: Reports system reviewed and no additional complaints, except as documented and Reports Normal hearing present Cardiovascular: Cardiovascular: Reports no additional cardiovascular complaints Respiratory: Respiratory: Reports no additional respiratory complaints and Reports no additional respiratory complaints Gastrointestinal: Gastrointestinal: Reports as per HPI and Reports no additional gastrointestinal complaints Musculoskeletal: Musculoskeletal: Reports no additional musculoskeletal complaints Integumentary/Breasts: Skin/Breast: Reports system reviewed and no additional complaints, except as docu and Reports as per HPI Neurologic: Reports system reviewed and no additional complaints, except as documented, Reports as per HPI and Reports Normal hearing present Psychiatric: Psychiatric: Reports no additional psychiatric complaints and Reports as per HPI Endocrine: Endocrine: Reports no additional endocrine complaints Hematologic/Lymphatic: Hematologic/Lymphatic: Reports no additional hematologic/lymphatic complaints Allergic/Immunologic: Allergic/Immunologic: Reports no additional allergic/immunologic complaints [facility] Past Medical History Medical History (Updated 02/12/22 @ 16:20 by Sabrina Garcia NP) COVID-19 History of diabetes mellitus History of hypertension HLD (hyperlipidemia) Suspected 2019 novel coronavirus infection Surgical History Surgical History History of cholecystectomy History of left knee replacement Family History Family History Mother Diabetes mellitus Cerebrovascular accident Hypertension Cancer of lung Father Unknown family medical history Social History Social History (Updated 02/12/22 @ 16:17 by Sabrina Garcia NP) Social History: 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 She does not drink or do drugs. She is a former smoker and quit about 20 years ago. She has 4 children and would like for them to be the durable power city attorney for healthcare. Code status ; full code. Smoking packs per day: 4 Smoking cigarettes per day: 80.0 Years smoked: 29 Smoking pack-years: 116.00 Smoking status: Former smoker Tobacco type: cigarettes Second hand tob
--- NOTE | 2022-02-12 13:40 | PC.NURSE ---
standard heart healthy tray ordered
[2022-02-12] MEDS: FUROSEMIDE INJ 40 MG/4 ML VIAL IV PUSH (13:52)
[2022-02-12 14:42] VITALS: BP 161/67; PULSE 92; RESP 20; O2SAT 96
[2022-02-12 16:30] VITALS: BP 169/76; PULSE 87; RESP 18; TEMP 36.3; O2SAT 98
[2022-02-12 16:35] VITALS: BMI 49.4
[2022-02-12 17:45] VITALS: BMI 50.5
[2022-02-12 18:08] LABS: Glucose Point of Care 135 mg/dl (65-105)
[2022-02-12 20:18] VITALS: BP 171/72; PULSE 86; RESP 20; TEMP 36.4; O2SAT 96
[2022-02-12] MEDS: amLODIPine BESYLATE 5 MG TABLET 10 MG PO (21:13)
[2022-02-12 21:14] VITALS: PULSE 86
[2022-02-12] MEDS: carvediloL 25 MG TABLET PO (21:14)
[2022-02-12] MEDS: GLIMEPIRIDE 1 MG TABLET PO (21:14)
[2022-02-12 23:10] LABS: Glucose Point of Care 124 mg/dl (65-105)
--- NOTE | 2022-02-13 | ECHO_ITS ---
Patient Info Name: Alina Charles Age: 62 years : 1960 Gender: Female Ht: 68 in Wt: 332 lbs BSA: 2.77 m2 HR: 81 bpm BP: 147 / 72 mmHg Heart Rhythm: Sinus Rhythm Exam Date: 02/13/2022 10:03 AM Exam Location: [facility] Patient Status: Inpatient Admit Date: 02/12/2022 Staff Ordering Physician: Sabrina Garcia NP Manager Of Application Development: Son Mazariegos RDCS Attending Provider: Malvin Emery MD Referring Physician: Radha PIERCE; Exam Type: CA echo doppler color flow Study Info Indications I51.7 - Cardiomegaly Complete two-dimensional, color flow and Doppler transthoracic echocardiogram is performed. Summary 1. Complete two-dimensional, color flow and Doppler transthoracic echocardiogram is performed. 2. Left ventricular chamber dimension is normal. 3. Left ventricular systolic function is normal, estimated at 55-60%. 4. There is mildly increased left ventricular wall thickness. 5. The left ventricular diastolic function is normal. 6. Left atrial chamber dimension is mildly enlarged. 7. Right atrial chamber dimension is mildly enlarged. 8. There is no aortic valve stenosis. 9. There is no mitral valve regurgitation. 10. Unable to estimate PA systolic pressure due to poor spectral resolution of tricuspid regurgitant jet velocity. Left Ventricle Left ventricular chamber dimension is normal. Left ventricular systolic function is normal, estimated at 55-60%. There is mildly increased left ventricular wall thickness. The left ventricular diastolic function is normal. Right Ventricle Right ventricular chamber dimension is normal. Right ventricular systolic function is normal. Left Atria Left atrial chamber dimension is mildly enlarged. Right Atria Right atrial chamber dimension is mildly enlarged. Aortic Valve The aortic valve is trileaflet. There is no aortic valve stenosis. There is mild aortic valve regurgitation. Pulmonic Valve The pulmonic valve is not well visualized. There is mild pulmonic regurgitation. Mitral Valve The mitral valve has normal leaflets. There is no mitral valve regurgitation. The mitral valve annulus is mildly calcified. Tricuspid Valve The tricuspid valve leaflets are normal. There is trace tricuspid valve regurgitation. Unable to estimate PA systolic pressure due to poor spectral resolution of tricuspid regurgitant jet velocity. Pericardium/Pleural The pericardium appears normal. Inferior Vena Cava Normal inferior vena cava with >50% collapse upon inspiration consistent with normal right atrial pressure, 5 mmHg. Aorta The aortic root size at the sinus of Valsalva is normal. The prox ascending aorta size is normal. There is mild aortic atherosclerosis. Left Ventricular Outflow Tract Name Value Normal LVOT 2D LVOT Diameter 2.1 cm LVOT Doppler LVOT Peak Gradient 5 mmHg LVOT Mean Gradient 3 mmHg LVOT VTI 20 cm LVOT VTI/AV VTI Ratio 0.7 LVOT Stroke Volume 71 ml LVOT
[2022-02-13 05:25] VITALS: BP 147/72; PULSE 81; RESP 16; TEMP 36.4; O2SAT 91
[2022-02-13 06:30] LABS: Alanine Aminotransferase 12 U/L (6-35); Albumin Level 3.8 g/dL (3.5-5.1); Alkaline Phosphatase 108 U/L (38-126); Anion Gap 5 mmol/L (8-16); Aspartate Amino Transferase 22 U/L (14-36); Bilirubin,Total 0.8 mg/dL (0.2-1.3); Blood Urea Nitrogen 15 mg/dL (7-17); Calcium 8.4 mg/dL (8.4-10.2); Carbon Dioxide 34 mmol/L (22-30); Chloride 100 mmol/L (98-107); Estimated CRCL calculation 112 ml/min; Estimated Glomerular Filt Rate > 60; Glucose 131 mg/dL (65-110); Potassium 3.5 mmol/L (3.4-5.0); Sodium 139 mmol/L (137-145)
[2022-02-13 06:39] LABS: Hemoglobin A1C 7.1 % (<5.7)
[2022-02-13 06:41] LABS: Basophils Percent Auto 0.2 % (0.2-1.2); Eosinophils Percent Auto 0.3 % (0-4.4); Hematocrit 38.8 % (37.0-47.0); Hemoglobin 12.2 g/dL (12.0-15.0); Immature Granulocyte Absolute 0.04 K/mm3 (0.00-0.031); Immature Granulocyte Percent A 0.4 % (0-0.5); Lymphocytes Absolute Auto 2.07 K/mm3 (0.9-3.2); Lymphocytes Percent Auto 23.1 % (18.3-44.2); Mean Corpuscular HGB Conc 31.4 g/dl (32-36); Mean Corpuscular Hemoglobin 27.1 pg (26-34); Mean Platelet Volume 10.6 fl (7.4-10.4); Monocytes Absolute Auto 0.8 K/mm3 (0.1-0.6); Monocytes Percent Auto 9.1 % (2.6-8.5); Neutrophils Percent Auto 66.9 % (45.5-73.1); Platelet Count Result 340 k/mm3 (150-375); Red Blood Count 4.51 M/mm3 (4.2-5.4); Red Cell Distribution Width 15.8 % (11.5-14.5)
[2022-02-13 08:02] LABS: Glucose Point of Care 128 mg/dl (65-105)
[2022-02-13] MEDS: carvediloL 25 MG TABLET PO ×2 (10:15→20:47)
[2022-02-13] MEDS: ASPIRIN 81 MG ENTERIC TABLET PO (10:16)
[2022-02-13] MEDS: FUROSEMIDE INJ 40 MG/4 ML VIAL 20 MG IV PUSH (10:17)
[2022-02-13 12:19] LABS: Glucose Point of Care 96 mg/dl (65-105)
[2022-02-13 14:45] VITALS: BP 136/60; PULSE 80; RESP 16; TEMP 36.8; O2SAT 95
--- NOTE | 2022-02-13 15:37 | PM.IMPN ---
Progress Note: A&P Assessment and Plan (1) Acute respiratory failure with hypoxia: Code(s): J96.01 - Acute respiratory failure with hypoxia Status: Acute Assessment and Plan: Presented to the ED for evaluation of hypoxia with spO2 89% prior to cataract surgery. H/O intermittent asthma and recent RSV infection. Influenza A/B and covid19 negative. CXR suggests pulmonary edema and cardiomegaly CTA without PE, but shows cardiomegaly and discoid atelectasis/scarring. Afebrile without leukocytosis or sputum changes to suggest pneumonia. TTE with normal LV systolic and diastolic function, EF 55-60%, LIYA, LAE, and no valvular disease. RVSP could not be measured. She has exertional dyspnea and ambulating in hallway today she desated to 88-90% on room air. Given lasix 40 mg IV x1 in ED and 20 mg IV today. BNP 447, however this may be underestimated due to obesity. Resume HCTZ in am. Check apnea study overnight Initiate scheduled albuterol nebs and push incentive spirometry. (2) T2DM (type 2 diabetes mellitus): Qualifiers: Diabetes mellitus care home insulin use: without care home use Diabetes mellitus complication status: without complication Qualified Code(s): E11.9 - Type 2 diabetes mellitus without complications Code(s): E11.9 - Type 2 diabetes mellitus without complications Status: Chronic Assessment and Plan: Chronic, stable. Accu-Cheks AC and HS with sliding scale insulin. Hypoglycemic protocol. A1c 7.1% continue with glimepiride at home dose (3) HTN (hypertension), benign: Code(s): I10 - Essential (primary) hypertension Status: Chronic Assessment and Plan: Chronic, stable. BP 130s-140s/60s-70s. continue with amlodipine, Coreg and resume HCTZ in am. (4) Cataract: Qualifiers: Cataract type: unspecified Code(s): H26.9 - Unspecified cataract Status: Acute Assessment and Plan: To the left eye. The patient has a thick white coating over the left eye. Cataract surgery deferred due to hypoxia. Plan CODE STATUS: FULL CODE Disposition: Observation, discharge 1-2 days Discharge destination: home. Time Spent With Patient Time with patient: 15 - 25 minutes Subjective Date/time seen: 02/13/22 15:37 She feels her breathing is improved today. She denies dyspnea with exertion, cough or sputum. No lower extremity edema. She had a sleep study 10 years ago and required a CPAP, however, her machine broke and she has not been able to replace it for many years. Additionally, she reports she contracted RSV a few weeks ago from young family members, but felt that she improved following this illness. She reports mild asthma with rare albuterol inhaler use. Review of Systems Review of Systems: All systems reviewed & are unremarkable except as noted in HPI and below Exam Narrative: General: No acute distress. Obese, adult female lying in bed. BMI 50. Mental Status/Psych: Awake, alert and oriented x4 with clear speech. Neutral mood and affect. Pleasant and cooperative. Skin: warm, dry and intact without rashes or lesions. No open wounds. HEENT: Normocephalic. Sclera is non-icteric. Oral mucosa moist. Pupils equal and round. Neck: No JVD. Heart: S1 and S2 regular rate and rhythm. No murmurs, gallops, or rubs auscultated. Chest: Respirations even and unlabored. Lung sounds diminished, but clear to auscultation bilaterally without wheezes, rhonchi, or rales. Abdomen: Soft, round and nontender to palpation.? Bowel sounds present in all 4 quadrants. No guarding. Extremities:? Grossly normal ROM all extremities. No edema, erythema, calf tenderness. Radial and dorsalis pedis pulses +2 bilaterally. Neurological: No focal deficits. Cranial nerves 2-12 grossly intact. Objective Data Vital Signs Vital Signs: Vital Signs - 24 hr 02/12/22 16:30 02/12/22 19:33 02/12/22 20:18 Temperature 97.3 F L 97.6 F Pulse Rate 87 86 Re
[2022-02-13 17:04] LABS: Anion Gap 5 mmol/L (8-16); Blood Urea Nitrogen 18 mg/dL (7-17); Calcium 8.4 mg/dL (8.4-10.2); Carbon Dioxide 34 mmol/L (22-30); Chloride 98 mmol/L (98-107); Estimated CRCL calculation 89 ml/min; Estimated Glomerular Filt Rate > 60; Glucose 125 mg/dL (65-110); Potassium 3.6 mmol/L (3.4-5.0); Sodium 137 mmol/L (137-145)
[2022-02-13 17:15] LABS: Glucose Point of Care 114 mg/dl (65-105)
[2022-02-13] MEDS: POTASSIUM CHLORIDE 20 MEQ TABLET.ER PO (17:18)
[2022-02-13] MEDS: ALBUTEROL SULFATE NEB 2.5 MG/3 ML INH INHALATION (20:27)
[2022-02-13 20:29] VITALS: PULSE 75; RESP 20
[2022-02-13] MEDS: amLODIPine BESYLATE 5 MG TABLET 10 MG PO (20:46)
[2022-02-13 20:47] VITALS: PULSE 79
[2022-02-13] MEDS: ATORVASTATIN 40 MG TABLET 80 MG PO (20:47)
[2022-02-13] MEDS: GLIMEPIRIDE 1 MG TABLET PO (20:47)
[2022-02-13 20:48] VITALS: PULSE 74; RESP 20
[2022-02-13 20:57] LABS: Glucose Point of Care 99 mg/dl (65-105)
[2022-02-13 22:00] VITALS: BP 170/88; PULSE 79; RESP 20; TEMP 36.2; O2SAT 98
[2022-02-14] VITALS (7 sets, daily range): BP systolic 141–142; BP diastolic 53–65; PULSE 72–93; RESP 16–18; TEMP 36.3; O2SAT 91–95
--- NOTE | 2022-02-14 01:19 | PCRCNOTE ---
apnea link started at 0015.
[2022-02-14 06:12] LABS: Basophils Percent Auto 0.2 % (0.2-1.2); Eosinophils Percent Auto 0.1 % (0-4.4); Hematocrit 40.9 % (37.0-47.0); Hemoglobin 12.7 g/dL (12.0-15.0); Immature Granulocyte Absolute 0.03 K/mm3 (0.00-0.031); Immature Granulocyte Percent A 0.3 % (0-0.5); Lymphocytes Absolute Auto 2.13 K/mm3 (0.9-3.2); Lymphocytes Percent Auto 22.6 % (18.3-44.2); Mean Corpuscular HGB Conc 31.1 g/dl (32-36); Mean Corpuscular Hemoglobin 26.9 pg (26-34); Mean Corpuscular Volume 86.7 fl (80-100); Mean Platelet Volume 10.7 fl (7.4-10.4); Monocytes Absolute Auto 0.8 K/mm3 (0.1-0.6); Monocytes Percent Auto 8.3 % (2.6-8.5); Neutrophils Absolute Auto 6.4 K/mm3 (1.3-6.7); Neutrophils Percent Auto 68.5 % (45.5-73.1); Platelet Count Result 376 k/mm3 (150-375); Red Blood Count 4.72 M/mm3 (4.2-5.4); Red Cell Distribution Width 15.6 % (11.5-14.5); White Blood Count 9.4 K/mm3 (4.5-10.0)
[2022-02-14] MEDS: ALBUTEROL SULFATE NEB 2.5 MG/3 ML INH INHALATION (08:02)
[2022-02-14] MEDS: carvediloL 25 MG TABLET PO (08:53)
[2022-02-14] MEDS: POTASSIUM CHLORIDE 20 MEQ TABLET.ER PO (08:53)
[2022-02-14] MEDS: hydroCHLOROthiazide 12.5 MG CAPSULE PO (08:53)
[2022-02-14] MEDS: ASPIRIN 81 MG ENTERIC TABLET PO (08:53)
[2022-02-14 08:54] LABS: Glucose Point of Care 94 mg/dl (65-105)
[2022-02-14 11:53] LABS: Glucose Point of Care 107 mg/dl (65-105)
--- NOTE | 2022-02-14 13:33 | PM.DS ---
DS: Admitting Diagnosis Discharge Date 02/14/2022 1333 Admitting Diagnosis Acute respiratory failure with hypoxia DS: Discharge Diagnosis Discharge Diagnosis (1) Acute respiratory failure with hypoxia: Code(s): J96.01 - Acute respiratory failure with hypoxia Status: Acute Assessment and Plan: Presented to the ED for evaluation of hypoxia with spO2 89% prior to cataract surgery. H/O intermittent asthma and recent RSV infection. Influenza A/B and covid19 negative. CXR suggests pulmonary edema and cardiomegaly CTA without PE, but shows cardiomegaly and discoid atelectasis/scarring. Afebrile without leukocytosis or sputum changes to suggest pneumonia. TTE with normal LV systolic and diastolic function, EF 55-60%, LIYA, LAE, and no valvular disease. RVSP could not be measured. - no overt structural heart disease She had exertional dyspnea and ambulating in hallway today she desated to 88-90% on room air. 02/13/22 Given lasix 40 mg IV x1 in ED and 20 mg IV 02/13/22. BNP 447, however this may be underestimated due to obesity. Resumed HCTZ on 02/14/22 apnea study overnight showed AHI 80.5 with 79 min with spO2<88%, with lowest saturation 59% Treated with scheduled albuterol nebs x24 hours and pushed incentive spirometry. (2) T2DM (type 2 diabetes mellitus): Qualifiers: Diabetes mellitus complication status: without complication Diabetes mellitus weight inspector insulin use: without weight inspector use Qualified Code(s): E11.9 - Type 2 diabetes mellitus without complications Code(s): E11.9 - Type 2 diabetes mellitus without complications Status: Chronic Assessment and Plan: Chronic, stable. monitored glucose AC and HS with sliding scale insulin. Hypoglycemic protocol. A1c 7.1% continue with glimepiride at home dose (3) HTN (hypertension), benign: Code(s): I10 - Essential (primary) hypertension Status: Chronic Assessment and Plan: Chronic, stable. BP 130s-140s/60s-70s. continue with amlodipine, Coreg and resume HCTZ in am. (4) Cataract: Qualifiers: Cataract type: unspecified Code(s): H26.9 - Unspecified cataract Status: Acute Assessment and Plan: To the left eye. The patient has a thick white coating over the left eye. Cataract surgery deferred due to hypoxia. (5) Intermittent asthma: Code(s): J45.20 - Mild intermittent asthma, uncomplicated Status: Acute Assessment and Plan: Self reported by patient with limited inhaler use. May have been exacerbated by recent RSV (6) Nocturnal hypoxia: Code(s): G47.34 - Idiopathic sleep related nonobstructive alveolar hypoventilation Status: Acute Assessment and Plan: As above. Outpatient sleep study recommended She was previously diagnosed with sleep apnea from sleep study >10 years ago and has not had cpap in many years DS: Summary Hospital Course Reason for hospitalization: Dyspnea on exertion Hospital Course: Alina Charles is a?62-year-old female patient who was undergoing left eye cataract extraction and was found to have an irregular heartbeat and oxygen level at 89% on room air.? They contacted her primary care provider who recommended that the patient go to the emergency room to be evaluated.? The patient was asymptomatic and denied any chest pain, shortness of breath, fevers, palpitations or weakness. She has hypertension, diabetes and previously diagnosed with KRISTAN. No history of congestive heart failure.?The patient was placed on hydrochlorothiazide for hypertension.? On her ABGs her pH was 7.43 CO2 was 51.4 PO2 61.9.? Bicarb 33.4.? She had stable spO2>92% on room air in the ED.? She was found to be negative for influenza A/B and COVID.? Chest x-ray showed mild pulmonary edema and cardiomegaly.? CTA suggested occasional scattered areas of mild discoid scarring and/or atelectasis, but evidence of pulmonary embolism.? The patient was given IV La
== END 2022-02-14 14:25 | disposition home or self-care (01) ==
LOC: ANHED 13:43 → ANH2MED 02-13 16:32
PROVIDERS: Nurse Practitioner; Nurse Practitioner Family; Physician Assistant; Admitting Provider Hospitalist; Emergency Provider Emergency Medicine; PCP Internal Medicine Infectious Disease; Visit Provider Family Medicine
DX: J96.01 Acute respiratory failure with hypoxia (principal); E11.9 Type 2 diabetes mellitus without complications; I11.9 Hypertensive heart disease without heart failure; H26.9 Unspecified cataract; I49.9 Cardiac arrhythmia, unspecified; J81.1 Chronic pulmonary edema; E78.5 Hyperlipidemia, unspecified; R63.5 Abnormal weight gain; Z68.43 Body mass index [BMI] 50.0-59.9, adult; Z86.16 Personal history of COVID-19; Z20.822 Contact with and (suspected) exposure to COVID-19; Z87.891 Personal history of nicotine dependence; Z79.84 Long term (current) use of oral hypoglycemic drugs; Z79.82 Long term (current) use of aspirin; Z79.899 Other long term (current) drug therapy; Z83.3 Family history of diabetes mellitus; Z82.49 Family history of ischemic heart disease and other diseases of the circulatory system
CPT/HCPCS: 36415; 36600; 71046; 71275; 80048; 80053; 82805; 82948; 83036; 83735; 83880; 84443; 84484; 85025; 87636; 93005; 93306; 94618; 94640; 96374; 99285; A9270; G0378; G0379; J1940; Q9967